=== PATIENT | male | born 1945 | race African-American/Black ===

== ENCOUNTER 2020-07-13 08:07 | Outpatient (REF) | payer MEDICARE, OTHER, SELFPAY ==
[2020-07-13 08:35] LABS: MANUAL DIFF FLAG NO
[2020-07-13 08:48] LABS: Basophils Absolute Auto 0.1 X10*3/uL (0.0-0.2); Basophils Percent Auto 0.7 % (0-2); Eosinophils Absolute Auto 0.3 X10*3/uL (0.0-0.4); Eosinophils Percent Auto 2.8 % (0-4); Hematocrit 46.4 % (42-52); Hemoglobin 14.7 g/dl (14.0-18.0); Imm Gran Abs Auto 0.04 X10*3/uL (0.00-0.03); Imm Gran Pct Auto 0.5 % (0.0-0.4); Lymphocytes Absolute Auto 2.2 X10*3/uL (1.2-4.9); Lymphocytes Percent Auto 24.6 % (20-40); Mean Corpuscular HGB Conc 31.7 g/dl (31.0-36.0); Mean Corpuscular Hemoglobin 28.3 pg (27.0-33.0); Mean Corpuscular Volume 89.4 fL (80-98); Mean Platelet Volume 9.6 fL (9.4-12.4); Monocytes Absolute Auto 0.8 X10*3/uL (0.1-1.2); Neutrophils Absolute Auto 5.5 X10*3/uL (2.0-8.3); Neutrophils Percent Auto 62.4 % (45-73); Platelet Count 270 X10*3/uL (160-400); Red Blood Count 5.19 X10*6/uL (4.60-5.80); Red Cell Distribution Width 13.7 % (11.0-16.0); White Blood Count 8.8 X10*3/uL (4.8-10.8)
[2020-07-13 08:48] LABS: Appearance Urine CLEAR; Color Urine YELLOW; Glucose Urine UA NEG (NEG); Leukocyte Esterase Urine NEG (NEG); Nitrite Urine NEG (NEG); Urine Blood NEG (NEG); Urine Ketones NEG (NEG); Urine Protein NEG (NEG-TRACE)
[2020-07-13 09:05] LABS: Alanine Aminotransferase 31 U/L (0-40); Albumin Level 4.5 g/dL (3.5-5.0); Alkaline Phosphatase 88 U/L (39-117); Anion Gap 12 (12-20); Aspartate Amino Transferase 26 U/L (5-37); Bilirubin Total 0.6 mg/dL (0.0-1.0); Blood Urea Nitrogen 18 mg/dL (9-16); Calcium 9.9 mg/dL (8.4-10.2); Carbon Dioxide 29 mmol/L (22-29); Chloride 107 mmol/L (96-108); Cholesterol 195 mg/dL; Estimated Glomerular Filt Rate 57; Glucose Fasting 99 mg/dL (60-99); HDL Cholesterol 59 mg/dL; LDL Cholesterol Calculated 116 mg/dl; Potassium 4.7 mmol/l (3.3-5.1); Sodium 143 mmol/L (135-145); Triglycerides 104 mg/dL
[2020-07-13 09:27] LABS: PSA,Total (Free>4and<10) 3.43 ng/mL (0.00-4.00)
== END 2020-07-13 08:08 | disposition home or self-care (01) ==
LOC: HO.LAB 08:07
PROVIDERS: PCP Internal Medicine; Referring Provider Internal Medicine; Visit Provider Urology
DX: I10 Essential (primary) hypertension (principal); E78.00 Pure hypercholesterolemia, unspecified; R97.20 Elevated prostate specific antigen [PSA]; Z12.5 Encounter for screening for malignant neoplasm of prostate
CPT/HCPCS: 36415; 80053; 80061; 81003; 84153; 85025

== ENCOUNTER 2020-12-07 07:35 | Outpatient (REF) | payer MEDICARE, OTHER, SELFPAY ==
[2020-12-07 08:24] LABS: MANUAL DIFF FLAG NO
[2020-12-07 08:36] LABS: Basophils Percent Auto 0.5 % (0-2); Eosinophils Absolute Auto 0.2 X10*3/uL (0.0-0.4); Eosinophils Percent Auto 2.3 % (0-4); Hematocrit 44.7 % (42-52); Hemoglobin 14.3 g/dl (14.0-18.0); Imm Gran Abs Auto 0.03 X10*3/uL (0.00-0.03); Imm Gran Pct Auto 0.3 % (0.0-0.4); Lymphocytes Absolute Auto 1.9 X10*3/uL (1.2-4.9); Lymphocytes Percent Auto 22.1 % (20-40); Mean Corpuscular Hemoglobin 28.4 pg (27.0-33.0); Mean Corpuscular Volume 88.7 fL (80-98); Mean Platelet Volume 9.4 fL (9.4-12.4); Monocytes Absolute Auto 0.7 X10*3/uL (0.1-1.2); Monocytes Percent Auto 7.7 % (2-11); Neutrophils Absolute Auto 5.8 X10*3/uL (2.0-8.3); Neutrophils Percent Auto 67.1 % (45-73); Platelet Count 286 X10*3/uL (160-400); Red Blood Count 5.04 X10*6/uL (4.60-5.80); Red Cell Distribution Width 14.2 % (11.0-16.0); White Blood Count 8.6 X10*3/uL (4.8-10.8)
[2020-12-07 08:59] LABS: Alanine Aminotransferase 31 U/L (0-40); Albumin Level 4.5 g/dL (3.5-5.0); Alkaline Phosphatase 87 U/L (39-117); Anion Gap 11 (12-20); Aspartate Amino Transferase 25 U/L (5-37); Bilirubin Total 0.4 mg/dL (0.0-1.0); Blood Urea Nitrogen 12 mg/dL (9-16); Calcium 10.1 mg/dL (8.4-10.2); Carbon Dioxide 25 mmol/L (22-29); Chloride 109 mmol/L (96-108); Cholesterol 198 mg/dL; Estimated Glomerular Filt Rate > 60; Glucose Fasting 91 mg/dL (60-99); HDL Cholesterol 76 mg/dL; LDL Cholesterol Calculated 100 mg/dl; Potassium 4.1 mmol/L (3.3-5.1); Sodium 141 mmol/L (135-145); Total Protein 7.1 g/dL (6.5-8.0); Triglycerides 110 mg/dL
[2020-12-07 09:07] LABS: PSA,Total (Free>4and<10) 6.91 ng/mL (0.00-4.00)
[2020-12-08 11:22] LABS: Percent Free Prostate Spec Ag 16 % (calc) (>25); Prostate Specific Ag Total 6.2 ng/mL (< OR = 4.0)
== END 2020-12-07 07:36 | disposition home or self-care (01) ==
LOC: HO.LAB 07:35
PROVIDERS: PCP Internal Medicine; Visit Provider Internal Medicine
DX: Z12.5 Encounter for screening for malignant neoplasm of prostate (principal); R97.20 Elevated prostate specific antigen [PSA]; I10 Essential (primary) hypertension; E78.00 Pure hypercholesterolemia, unspecified
CPT/HCPCS: 36415; 80053; 80061; 84153; 84154; 85025

== ENCOUNTER 2021-05-31 08:04 | Outpatient (REF) | payer MEDICARE, OTHER, SELFPAY ==
[2021-05-31 09:03] LABS: Anion Gap 12 (12-20); Blood Urea Nitrogen 10 mg/dL (9-16); Carbon Dioxide 25 mmol/L (22-29); Chloride 107 mmol/L (96-108); Estimated Glomerular Filt Rate 58; Glucose Random 95 mg/dL (60-115); Potassium 4.1 mmol/L (3.3-5.1); Sodium 140 mmol/L (135-145)
[2021-05-31 09:32] LABS: PSA,Total (Free>4and<10) 4.43 ng/mL (0.00-4.00)
[2021-06-01 11:26] LABS: Free Prostate Spec Ag 0.9 ng/mL; Percent Free Prostate Spec Ag 22 % (calc) (>25); Prostate Specific Ag Total 4.1 ng/mL (< OR = 4.0)
== END 2021-05-31 08:05 | disposition home or self-care (01) ==
LOC: HO.LAB 08:04
PROVIDERS: PCP Internal Medicine; Visit Provider Internal Medicine
DX: Z12.5 Encounter for screening for malignant neoplasm of prostate (principal); R97.20 Elevated prostate specific antigen [PSA]; I10 Essential (primary) hypertension
CPT/HCPCS: 36415; 80048; 84153; 84154

== ENCOUNTER 2021-11-15 07:37 | Outpatient (REF) | payer MEDICARE, OTHER, SELFPAY ==
[2021-11-15 07:49] LABS: MANUAL DIFF FLAG NO
[2021-11-15 08:09] LABS: Basophils Absolute Auto 0.1 X10*3/uL (0.0-0.2); Basophils Percent Auto 0.6 % (0-2); Eosinophils Absolute Auto 0.3 X10*3/uL (0.0-0.4); Eosinophils Percent Auto 3.5 % (0-4); Hematocrit 42.9 % (42.0-52.0); Hemoglobin 13.7 g/dl (14.0-18.0); Imm Gran Abs Auto 0.02 X10*3/uL (0.00-0.03); Imm Gran Pct Auto 0.2 % (0.0-0.4); Lymphocytes Absolute Auto 1.9 X10*3/uL (1.2-4.9); Lymphocytes Percent Auto 23.1 % (20-40); Mean Corpuscular HGB Conc 31.9 g/dl (31.0-36.0); Mean Corpuscular Hemoglobin 28.3 pg (27.0-33.0); Mean Corpuscular Volume 88.6 fL (80.0-98.0); Mean Platelet Volume 9.7 fL (9.4-12.4); Monocytes Absolute Auto 0.7 X10*3/uL (0.1-1.2); Monocytes Percent Auto 8.9 % (2-11); Neutrophils Absolute Auto 5.3 x10*3/uL (2.0-8.3); Neutrophils Percent Auto 63.7 % (45-73); Platelet Count 271 X10*3/uL (160-400); Red Blood Count 4.84 X10*6/uL (4.60-5.80); Red Cell Distribution Width 14.3 % (11.0-16.0); White Blood Count 8.2 X10*3/uL (4.8-10.8)
[2021-11-15 08:25] LABS: Alanine Aminotransferase 34 U/L (0-40); Albumin Level 4.4 g/dL (3.5-5.0); Alkaline Phosphatase 79 U/L (39-117); Anion Gap 11 (12-20); Aspartate Amino Transferase 25 U/L (5-37); Bilirubin Total 0.8 mg/dL (0.0-1.0); Blood Urea Nitrogen 14 mg/dL (9-16); Calcium 10.2 mg/dL (8.4-10.2); Carbon Dioxide 25 mmol/L (22-29); Chloride 106 mmol/L (96-108); Cholesterol 167 mg/dL; Estimated Glomerular Filt Rate > 60; Glucose Fasting 95 mg/dL (60-99); HDL Cholesterol 64 mg/dL; LDL Cholesterol Calculated 86 mg/dl; Sodium 138 mmol/L (135-145); Triglycerides 85 mg/dL
[2021-11-15 09:02] LABS: Prostate Specific Antigen 5.82 ng/mL (<0.05-4.0)
== END 2021-11-15 07:38 | disposition home or self-care (01) ==
LOC: HO.LAB 07:37
PROVIDERS: PCP Internal Medicine; Visit Provider Internal Medicine
DX: Z12.5 Encounter for screening for malignant neoplasm of prostate (principal); E78.00 Pure hypercholesterolemia, unspecified; I10 Essential (primary) hypertension; N40.0 Benign prostatic hyperplasia without lower urinary tract symptoms
CPT/HCPCS: 36415; 80053; 80061; 84153; 85025

== ENCOUNTER 2022-03-27 10:41 | Outpatient (REF) | payer MEDICARE, OTHER, SELFPAY ==
[2022-03-27 13:49] LABS: MANUAL DIFF FLAG NO
[2022-03-27 14:17] LABS: Basophils Absolute Auto 0.1 X10*3/uL (0.0-0.2); Basophils Percent Auto 0.7 % (0-2); Eosinophils Absolute Auto 0.2 X10*3/uL (0.0-0.4); Eosinophils Percent Auto 2.1 % (0-4); Hematocrit 45.9 % (42.0-52.0); Hemoglobin 14.7 g/dl (14.0-18.0); Imm Gran Abs Auto 0.04 X10*3/uL (0.00-0.03); Imm Gran Pct Auto 0.5 % (0.0-0.4); Lymphocytes Absolute Auto 1.5 X10*3/uL (1.2-4.9); Lymphocytes Percent Auto 16.9 % (20-40); Mean Corpuscular Hemoglobin 27.9 pg (27.0-33.0); Mean Corpuscular Volume 87.1 fL (80.0-98.0); Mean Platelet Volume 10.1 fL (9.4-12.4); Monocytes Absolute Auto 0.6 X10*3/uL (0.1-1.2); Monocytes Percent Auto 7.4 % (2-11); Neutrophils Absolute Auto 6.3 x10*3/uL (2.0-8.3); Neutrophils Percent Auto 72.4 % (45-73); Platelet Count 276 X10*3/uL (160-400); Red Blood Count 5.27 X10*6/uL (4.60-5.80); Red Cell Distribution Width 14.1 % (11.0-16.0); White Blood Count 8.7 X10*3/uL (4.8-10.8)
[2022-03-27 14:38] LABS: Anion Gap 15 (12-20); Blood Urea Nitrogen 14 mg/dL (9-16); Calcium 10.2 mg/dL (8.4-10.2); Carbon Dioxide 25 mmol/L (22-29); Chloride 104 mmol/L (96-108); Estimated Glomerular Filt Rate 58; Glucose Random 113 mg/dL (60-115); Iron 112 mcg/dL (45-160); Percent Iron Saturation 33 % (15-50); Potassium 3.9 mmol/L (3.3-5.1); Sodium 140 mmol/L (135-145); Total Iron Binding Capacity 342 mcg/dL (228-428); Unsaturated Iron Binding 230 ug/dL
[2022-03-27 15:05] LABS: Prostate Specific Antigen 6.93 ng/mL (<0.05-4.0)
== END 2022-03-27 10:42 | disposition home or self-care (01) ==
LOC: HO.10HDL 10:41
PROVIDERS: Visit Provider Internal Medicine
DX: Z12.5 Encounter for screening for malignant neoplasm of prostate (principal); R97.20 Elevated prostate specific antigen [PSA]; I10 Essential (primary) hypertension
CPT/HCPCS: 36415; 80048; 83540; 84153; 85025

== ENCOUNTER 2022-11-27 07:47 | Outpatient (REF) | payer MEDICARE, OTHER, SELFPAY ==
[2022-11-27 07:57] LABS: MANUAL DIFF FLAG NO
[2022-11-27 09:30] LABS: Basophils Absolute Auto 0.1 X10*3/uL (0.0-0.2); Basophils Percent Auto 0.8 % (0-2); Eosinophils Absolute Auto 0.3 X10*3/uL (0.0-0.4); Hematocrit 47.5 % (42.0-52.0); Imm Gran Abs Auto 0.03 X10*3/uL (0.00-0.03); Imm Gran Pct Auto 0.3 % (0.0-0.4); Lymphocytes Absolute Auto 2.3 X10*3/uL (1.2-4.9); Lymphocytes Percent Auto 24.2 % (20-40); Mean Corpuscular HGB Conc 31.6 g/dl (31.0-36.0); Mean Corpuscular Hemoglobin 28.3 pg (27.0-33.0); Mean Corpuscular Volume 89.6 fL (80.0-98.0); Mean Platelet Volume 9.9 fL (9.4-12.4); Monocytes Absolute Auto 0.8 X10*3/uL (0.1-1.2); Monocytes Percent Auto 8.7 % (2-11); Neutrophils Absolute Auto 5.9 x10*3/uL (2.0-8.3); Platelet Count 284 X10*3/uL (160-400); Red Cell Distribution Width 13.8 % (11.0-16.0); White Blood Count 9.3 X10*3/uL (4.8-10.8)
[2022-11-27 10:30] LABS: Alanine Aminotransferase 25 U/L (0-40); Albumin Level 4.5 g/dL (3.5-5.0); Alkaline Phosphatase 76 U/L (39-117); Anion Gap 11 (12-20); Aspartate Amino Transferase 22 U/L (5-37); Bilirubin Total 0.7 mg/dL (0.0-1.0); Blood Urea Nitrogen 12 mg/dL (9-16); Calcium 10.2 mg/dL (8.4-10.2); Carbon Dioxide 28 mmol/L (22-29); Chloride 106 mmol/L (96-108); Cholesterol 182 mg/dL; Estimated Glomerular Filt Rate 57; Glucose Fasting 84 mg/dL (60-99); HDL Cholesterol 73 mg/dL; LDL Cholesterol Calculated 89 mg/dl; Potassium 4.1 mmol/L (3.3-5.1); Sodium 141 mmol/L (135-145); Total Protein 7.6 g/dL (6.5-8.0); Triglycerides 100 mg/dL
[2022-11-27 10:32] LABS: Prostate Specific Antigen 4.88 ng/mL (<0.05-4.0)
== END 2022-11-27 07:48 | disposition home or self-care (01) ==
LOC: HO.LAB 07:47
PROVIDERS: PCP Internal Medicine; Visit Provider Internal Medicine
DX: I10 Essential (primary) hypertension (principal); R97.20 Elevated prostate specific antigen [PSA]; E78.00 Pure hypercholesterolemia, unspecified; Z12.5 Encounter for screening for malignant neoplasm of prostate
CPT/HCPCS: 36415; 80053; 80061; 84153; 85025

== ENCOUNTER 2023-05-28 09:39 | Outpatient (REF) | payer MEDICARE, OTHER, SELFPAY ==
[2023-05-28 10:36] LABS: Anion Gap 11 (12-20); Blood Urea Nitrogen 10 mg/dL (9-16); Calcium 10.5 mg/dL (8.4-10.2); Carbon Dioxide 28 mmol/L (22-29); Chloride 106 mmol/L (96-108); Estimated Glomerular Filt Rate > 60; Glucose Random 104 mg/dL (60-115); Potassium 3.7 mmol/L (3.3-5.1); Sodium 141 mmol/L (135-145)
== END 2023-05-28 09:40 | disposition home or self-care (01) ==
LOC: HO.10HDL 09:39
PROVIDERS: Visit Provider Internal Medicine
DX: I12.9 Hypertensive chronic kidney disease with stage 1 through stage 4 chronic kidney disease, or unspecified chronic kidney disease (principal); N18.9 Chronic kidney disease, unspecified; K57.90 Diverticulosis of intestine, part unspecified, without perforation or abscess without bleeding
CPT/HCPCS: 36415; 80048

== ENCOUNTER 2023-09-01 14:15 | Outpatient (AMB) | payer MEDICARE, OTHER, SELFPAY ==
--- NOTE | 2023-09-01 14:23 | A.OFFVIS_ITS ---
Intake Vital Signs 09/01/23 14:31 Height 5 ft 8 in Weight 215 lb 2 oz BMI 32.7 BP 127/78 Blood Pressure Location Lt brachial Position Sitting Pulse 120 H Intake Visit Reasons: Hemorrhoids Intake Note: Patient is seen in office for evaluation and treatment of hemorrhoids. 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 He describes drainage from his anus along with some blood frequently. He says that he always has to keep a piece of history paper in his anus because of this. This has been going for a few months now. He says he has had hemorrhoids for about 50 years but this really have not given him problems in the past. He feels that this problem with the drainage seemeds to be worsening. He denies any pain. He also describes sometimes having to push this large hemorrhoid in. He states that he is in good health overall. [facility] Medical History (Updated 09/01/23 @ 14:46 by Jermaine Calderon MD) Hemorrhoids that prolapse with straining and require manual replacement back inside anal canal Hyperlipidemia Hypertension Surgical History (Updated 09/01/23 @ 14:29 by LEXY Sarmiento) History of carpal tunnel release Hx of left inguinal hernia repair Hx of left knee surgery Hx of excision of mass Family History (Updated 09/01/23 @ 14:30 by LEXY Sarmiento) Sister Pancreatic cancer Social History (Updated 09/01/23 @ 14:27 by LEXY Sarmiento) Alcohol intake: current Patient Tobacco Use Status: Never used Tobacco Review of Systems Const Denies chills and Denies fever(s) Card Denies chest pain, Denies dyspnea and Denies dyspnea on exertion Resp Denies cough, Denies dyspnea and Denies dyspnea on exertion GI Denies hematochezia and Denies change in bowel habits Denies hematuria and Denies difficulty urinating Musc Denies back pain and Denies limited range of motion Neuro Denies focal weakness and Denies convulsions Psych Denies depression and Denies mood swings Physical Exam Vital Signs: Last Vital Signs Pulse 120 H 09/01/23 14:31 BP 127/78 09/01/23 14:31 BMI result Body Mass Index 32.7 Const General: comfortable and no acute distress Orientation/consciousness: patient oriented x3 Neck Neck: Yes no lymphadenopathy Resp Auscultation: clear to auscultation bilaterally Cardio Rhythm: regular rhythm GI Other: Rectal exam shows a large, bulky prolapsing hemorrhoid column, internal external which seems to be on the anterior area Palpation (GI): Soft to palpation, nontender and no guarding Neuro General: patient oriented x3 Office Procedures Anoscopy He was in flakita-knife position. The anoscope was gently inserted. A full examination of the anal canal was done. He had this large internal external column anteriorly that seemed to prolapse easily, with some erythema [id number] Assessment & Plan Assessment & Plan (1) Hemorrhoids that prolapse with straining and require manual replacement back inside anal canal: Code(s): K64.2 - Third degree hemorrhoids Plan: He has this large hemorrhoidal column anteriorly which he says causes some drainage and discomfort. This seems to be worsening. He says that once in a while he has to push this back into the anus I explained to him the option of hemorrhoidectomy. I discussed the technique of exam under anesthesia and hemorrhoidectomy. I reviewed the risks including but not limited to bleeding, infections, poor healing, postop pain, as well as the benefits and alternatives. I reviewed with him what to expect postoperatively. He wants to proceed. Coding Level of Care Code New Pt Level 3 (67713) Diagnoses Hemorrhoids that prolapse with straining and require manual replacement back inside anal canal K64.2 CPT Codes Details - CPT: [id number] ([id number])
[2023-09-01 14:31] VITALS: BP 127/78; PULSE 120; BMI 32.7
== END 2023-09-01 14:50 | disposition home or self-care (01) ==
PROVIDERS: PCP Internal Medicine; Referring Provider Internal Medicine; Visit Provider Surgery
DX: K64.2 Third degree hemorrhoids (principal)
CPT/HCPCS: 46600; 99203

== ENCOUNTER → 2023-09-01 14:15 | Outpatient (BNVA) | payer MEDICARE, OTHER, SELFPAY | PROVIDERS: PCP Internal Medicine; Referring Provider Internal Medicine; Visit Provider Surgery | DX: K64.2 Third degree hemorrhoids (principal); I10 Essential (primary) hypertension; E78.5 Hyperlipidemia, unspecified | CPT/HCPCS: 46600; 99202 ==

== ENCOUNTER 2023-10-10 08:36 | Day surgery (SDC) | payer MEDICARE, OTHER, SELFPAY ==
[2023-10-09 06:43] VITALS: BMI 32.7
[2023-10-10 10:02] VITALS: BMI 31.9
--- NOTE | 2023-10-10 10:44 | P.CONAN_ITS ---
[facility] Active Problems Active Problems: All Active Problems Hemorrhoids that prolapse with straining and require manual replacement back inside anal canal (Acute) Hyperlipidemia (Acute) Hypertension (Acute) Past Medical History Medical History Hemorrhoids that prolapse with straining and require manual replacement back inside anal canal Hyperlipidemia Hypertension Family History Family History (Updated 09/01/23 @ 14:30 by LEXY Sarmiento) Sister Pancreatic cancer Family history of problems with anesthesia: No Surgical History Surgical History History of carpal tunnel release Hx of left inguinal hernia repair Hx of left knee surgery Hx of excision of mass History of Problems with Anesthesia: No Social History Social History (Updated 09/01/23 @ 14:27 by LEXY Sarmiento) Alcohol intake: current Alcohol intake frequency: holidays/special occasions only Patient Tobacco Use Status: Never used Tobacco Use of substances other than those prescribed or required for medical reasons: Yes Substance Use Frequency: Occasionally Are you DNR?: No Advance Directives: No Advance Directives Information Provided: Yes Meds Allergies Allergy/AdvReac Type Severity Reaction Status Date / Time lisinopril [LISINOPRIL] Allergy Unknown ORAL Verified 10/10/23 10:06 SWELLING lisinopril Allergy Unknown oral Uncoded 10/10/23 10:06 swelling Active Medications: Current Medications Fentanyl (Fentanyl Citrate/Pf 100 Mcg/2 Ml Vial) 50 mcg IVPUSH Q5M PRN; Protocol PRN Reason: Pain, Severe (Pain Scale 7-10) Stop: 10/10/23 16:42 Ondansetron HCl (Ondansetron Hcl 4 Mg/2 Ml Vial) 4 mg IVPUSH ONCE PRN PRN Reason: Nausea and Vomiting Stop: 10/10/23 16:42 Oxycodone HCl (Oxycodone Hcl Immed Release 5 Mg Tablet) 5 mg PO ONCE PRN PRN Reason: Pain, Moderate(Pain Scale 4-6) Stop: 10/10/23 16:42 Home Medications ?Medication ?Instructions ?Recorded ?Confirmed ?Last Taken ?Type amlodipine 10 mg tablet 10 mg PO DAILY 09/01/23 10/10/23 10/10/23 History doxazosin 2 mg tablet 2 mg PO DAILY 09/01/23 10/10/23 10/10/23 History simvastatin 20 mg tablet 20 mg PO BEDTIME 09/01/23 10/10/23 10/09/23 History Exam Height,Weight and Vital Signs: Height 5 ft 8 in Weight 95.254 kg Airway Mallampati Class: II (caps top front, lateral) TM Dist: >3cm Neck ROM: Full Heart: rrr Lungs: cta Assessment and Plan Assessment Anesthesia Assessment: Anesthesia Plan Discussed and Chart Reviewed Final Anesthetic Review Family History of Problems with Anesthesia: No History of Problems with Anesthesia: No NPO: Yes ASA Class: II Final Preanesthetic Review: No Changes in Pt Med Stat, Meds/Allgs Chart Reviewed and Consent Obtained/Reviewed Patient Risk: Intermediate Procedure Risk: Intermediate Anesthetic Plan Anesthetic Plan: GA Disposition: Standard PACU
[2023-10-10 10:50] VITALS: BP 160/92; PULSE 102; RESP 16; TEMP 36.3; O2SAT 98
--- NOTE | 2023-10-10 10:55 | MHC.SHP ---
Pre-Procedural Eval Section A - 24 Hr Update-Section A only Date of Service: 10/10/23 Section B - Complete if H&P > 30 days Chief Complaint: Third degree hemorrhoids Details of Present Illness: Has mixed internal and external hemorrhoidal column the prolapse with causes discomfort and drainage Relevant Family History (Specify if Yes): No Relevant Social History: None Present Medications: see Short Stay Collaborative assessment Medical History: Significant History (Hypertension, hyperlipidemia) Allergies: Allergies Allergy/AdvReac Type Severity Reaction Status Date / Time lisinopril [LISINOPRIL] Allergy Unknown ORAL Verified 10/10/23 10:06 SWELLING lisinopril Allergy Unknown oral Uncoded 10/10/23 10:06 swelling Review of Systems Sugical H&P ROS: Negative: Constitution, Cardiovascular, Respiratory, Neurological, Psychiatric, Hem-Onc, Allergic/Immunologic, Gastrointestinal, Genitourinary, Musculoskeletal, Integumentary, Endocrine and Eyes/Ears/Nose/Throat Exam Surgical H&P Exam: Normal: HEENT, Normal: Heart, Normal: Lungs, Normal: Extremities, Normal: Abdomen, Normal: Skin and Normal: Neurological Exam Comment: Internal external hemorrhoids Plan Diagnosis/Plan: Unchanged I have reviewed the history and physical and performed a pertinent physical examination on my patient. No changes have occurred unless specified. Time Spent With Patient Time: Total time managing care of this patient today ____ minutes.
--- NOTE | 2023-10-10 12:03 | W.PM.OPN ---
Operative Note Operative Note Date of Service: 10/10/23 Narrative: Preop diagnosis: Internal and external hemorrhoids with prolapse Postop diagnosis: The same Procedure: Exam under anesthesia, hemorrhoidectomy Surgeon: Jermaine Calderon MD The patient is a 78-year-old male with a long history of hemorrhoids that prolapse frequently requiring manual reduction. He wanted to proceed with hemorrhoidectomy in view of his longstanding symptoms. He was aware of the risks, benefits, and alternatives. He was brought to the operating room. He was placed in prone flakita-knife position under general anesthesia via endotracheal tube. The buttocks were retracted with wide tape laterally. The perianal area was prepped and draped in the usual sterile fashion. A surgical time-out was done. The patient received Cefotan 2 g IV preoperatively he I infiltrated the perianal area with Marcaine 0.5% for postop analgesia. There is was note of a prolapse hemorrhoidal column on the right anterior. I inserted the Mary Jane Steward retractor. I examined the anal canal circumferentially. This hemorrhoidal column was seen and was noted to be bulky and a mix of internal external. This measured about 4 cm in size. I retracted this with a Muñoz grasper. I applied a [id number] stitch at its pedicle past the dentate line using a chromic 3-0. I made an incision around this hemorrhoidal columns the perianal skin with a blade 15. I excised this hemorrhoidal column above the plane of the sphincters using scissors. I closed the incision with a running chromic 3-0 stitch. Additional hemostatic [id number] sutures were placed for oozing areas There were no other lesions in the anal canal. There was no bleeding or any ulceration. There was no induration . I applied a rolled Gelfoam into the anal canal for additional hemostasis. I infiltrated the perianal area with Marcaine 0.5% for postop analgesia. The procedure was completed. The patient tolerated procedure well. There were no immediate complications. Initial and final counts of sponges and instruments were correct. Estimated blood loss about 25 cc. The patient was extubated without difficulty and transferred to the recovery room with stable vital signs.
[2023-10-10 12:08] VITALS: BP 134/80; PULSE 99; RESP 16; TEMP 36.3; O2SAT 95
[2023-10-10 12:13] VITALS: BP 129/81; PULSE 103; RESP 16; O2SAT 94
[2023-10-10 12:18] VITALS: BP 147/91; PULSE 99; RESP 16; O2SAT 93
[2023-10-10 12:23] VITALS: BP 125/81; PULSE 93; RESP 18; TEMP 36.6; O2SAT 96
[2023-10-10 12:38] VITALS: BP 128/72; PULSE 99; RESP 18; O2SAT 96
== END 2023-10-10 13:00 | disposition home or self-care (01) ==
PROVIDERS: PCP Internal Medicine; Visit Provider Surgery
PROC: (CPT 46255; principal; 2023-10-10 11:10)
DX: K64.2 Third degree hemorrhoids (principal); K64.4 Residual hemorrhoidal skin tags; I10 Essential (primary) hypertension; E78.5 Hyperlipidemia, unspecified; Z79.899 Other long term (current) drug therapy; Z88.8 Allergy status to other drugs, medicaments and biological substances; Z98.890 Other specified postprocedural states
CPT/HCPCS: 46255; 88304; J1100; J2405; J2704; J2795; J3010

== ENCOUNTER → 2023-10-10 08:36 | Outpatient (BNV) | payer MEDICARE, OTHER, SELFPAY | PROVIDERS: PCP Internal Medicine; Visit Provider Surgery | DX: K64.2 Third degree hemorrhoids (principal) | CPT/HCPCS: 46255 ==

== ENCOUNTER 2023-10-27 10:38 | Outpatient (AMB) | payer MEDICARE, OTHER, SELFPAY ==
--- NOTE | 2023-10-27 10:41 | A.OFFVIS_ITS ---
Intake Visit Reasons: s/p hemorrhoidectomy Intake Note: This patient presents for a post-op assessment status post hemorrhoidectomy. Patient c/o; reports no complaints pertaining to surgery. Surgery date: 10/10/2023 Thermo Processor Required: No Accompanied by: Self / Same As Patient Allergies lisinopril [LISINOPRIL] Allergy (Unknown, Verified 10/27/23 10:46) ORAL SWELLING lisinopril Allergy (Unknown, Uncoded 10/27/23 10:46) oral swelling HPI HPI s/p hemorrhoidectomy: Details: He underwent hemorrhoidectomy last 10/10/2023. He tolerated procedure well. He says he is doing well at home and has no significant pain anymore. [facility] Medical History Hemorrhoids that prolapse with straining and require manual replacement back inside anal canal Hyperlipidemia Hypertension Surgical History History of hemorrhoidectomy (~10/10/23) History of carpal tunnel release Hx of left inguinal hernia repair Hx of left knee surgery Hx of excision of mass Family History Sister Pancreatic cancer Social History Alcohol intake: current Alcohol intake frequency: holidays/special occasions o nly Patient Tobacco Use Status: Never used Tobacco Review of Systems Const Denies chills and Denies fever(s) Card Denies chest pain at rest GI Denies hematochezia Physical Exam Const General: comfortable and no acute distress Resp Effort & Inspection: normal respiratory effort GI Other: Rectal exam shows the hemorrhoidectomy site to be well healed, not infected Assessment & Plan Assessment & Plan (1) Hemorrhoids that prolapse with straining and require manual replacement back inside anal canal: Code(s): K64.2 - Third degree hemorrhoids Category: Medical Plan: Status post hemorrhoidectomy. He is doing very well. His surgical site is well healed. He says he feels well overall and is happy with the outcome I advised him on avoiding straining and constipation. He can follow up on a p.r.n. basis. Coding Level of Care Code Global (36169) Diagnoses Hemorrhoids that prolapse with straining and require manual replacement back inside anal canal K64.2
== END 2023-10-27 11:15 | disposition home or self-care (01) ==
PROVIDERS: PCP Internal Medicine; Visit Provider Surgery
DX: K64.2 Third degree hemorrhoids (principal)
CPT/HCPCS: 99024

== ENCOUNTER → 2023-10-27 10:38 | Outpatient (BNVA) | payer MEDICARE, OTHER, SELFPAY | PROVIDERS: PCP Internal Medicine; Visit Provider Surgery | DX: K64.2 Third degree hemorrhoids (principal); Z48.815 Encounter for surgical aftercare following surgery on the digestive system | CPT/HCPCS: 99212 ==

== ENCOUNTER 2024-03-31 08:31 | Outpatient (REF) | payer MEDICARE, OTHER, SELFPAY ==
[2024-03-31 08:58] LABS: MANUAL DIFF FLAG NO
[2024-03-31 09:18] LABS: Basophils Absolute Auto 0.1 X10*3/uL (0.0-0.2); Basophils Percent Auto 0.6 % (0-2); Eosinophils Absolute Auto 0.3 X10*3/uL (0.0-0.4); Eosinophils Percent Auto 2.3 % (0-4); Hemoglobin 14.9 g/dl (14.0-18.0); Imm Gran Abs Auto 0.04 X10*3/uL (0.00-0.03); Imm Gran Pct Auto 0.3 % (0.0-0.4); Lymphocytes Absolute Auto 1.7 X10*3/uL (1.2-4.9); Lymphocytes Percent Auto 13.4 % (20-40); Mean Corpuscular HGB Conc 31.7 g/dl (31.0-36.0); Mean Corpuscular Hemoglobin 28.6 pg (27.0-33.0); Mean Corpuscular Volume 90.2 fL (80.0-98.0); Mean Platelet Volume 9.2 fL (9.4-12.4); Monocytes Absolute Auto 0.9 X10*3/uL (0.1-1.2); Monocytes Percent Auto 7.2 % (2-11); Neutrophils Absolute Auto 9.5 x10*3/uL (2.0-8.3); Neutrophils Percent Auto 76.2 % (45-73); Platelet Count 283 X10*3/uL (160-400); Red Blood Count 5.21 X10*6/uL (4.60-5.80); Red Cell Distribution Width 13.2 % (11.0-16.0); White Blood Count 12.4 X10*3/uL (4.8-10.8)
[2024-03-31 09:28] LABS: Appearance Urine Clear; Color Urine Yellow; Glucose Urine UA Negative (Negative); Leukocyte Esterase Urine Trace (Negative); Nitrite Urine Negative (Negative); PH 5.5 (5.0-9.0); UMIC TRIGGER UA YES; Urine Blood Negative (Negative); Urine Ketones Trace mg/dL (Negative); Urine Protein Trace mg/dL (Neg-Trace)
[2024-03-31 09:32] LABS: Bacteria Urine None Seen (None Seen); Hyaline Casts Urine 0-2 /LPF (0-2); RBC Urine 0-2 /HPF (0-2); Squamous Epithelial Cell Urine 0-2 /HPF (0-2); WBC Urine 0-5 /HPF (0-5)
[2024-03-31 09:56] LABS: Alanine Aminotransferase 27 U/L (0-40); Albumin Level 4.7 g/dL (3.5-5.0); Alkaline Phosphatase 93 U/L (39-117); Anion Gap 11 (12-20); Aspartate Amino Transferase 22 U/L (5-37); Bilirubin Total 0.6 mg/dL (0.0-1.0); Blood Urea Nitrogen 12 mg/dL (9-16); Calcium 10.8 mg/dL (8.4-10.2); Carbon Dioxide 29 mmol/L (22-29); Chloride 107 mmol/L (96-108); Cholesterol 191 mg/dL (<200); Estimated Glomerular Filt Rate 56; Glucose Fasting 106 mg/dL (60-99); HDL Cholesterol 65 mg/dL (>40); LDL Cholesterol Calculated 95 mg/dL (<100); Potassium 4.1 mmol/L (3.3-5.1); Sodium 143 mmol/L (135-145); Total Protein 7.7 g/dL (6.5-8.0); Triglycerides 158 mg/dL (<150)
[2024-03-31 10:11] LABS: Prostate Specific Antigen 6.23 ng/mL (<0.05-4.0)
== END 2024-03-31 08:32 | disposition home or self-care (01) ==
LOC: HO.LAB 08:31
PROVIDERS: PCP Internal Medicine; Visit Provider Internal Medicine
DX: I10 Essential (primary) hypertension (principal); N40.1 Benign prostatic hyperplasia with lower urinary tract symptoms; Z12.5 Encounter for screening for malignant neoplasm of prostate
CPT/HCPCS: 36415; 80053; 80061; 81001; 84153; 85025

== ENCOUNTER 2024-04-13 09:15 | Outpatient (REF) | payer MEDICARE, OTHER, SELFPAY ==
[2024-04-13 11:50] LABS: Anion Gap 13 (12-20); Blood Urea Nitrogen 9 mg/dL (9-16); Calcium 9.8 mg/dL (8.4-10.2); Carbon Dioxide 28 mmol/L (22-29); Chloride 104 mmol/L (96-108); Estimated Glomerular Filt Rate > 60; Glucose Random 104 mg/dL (60-115); Potassium 3.8 mmol/L (3.3-5.1); Sodium 141 mmol/L (135-145)
[2024-04-13 12:40] LABS: Parathyroid Hormone Intact 190.5 pg/mL (8.7-77.1)
== END 2024-04-13 09:16 | disposition home or self-care (01) ==
LOC: HO.10HDL 09:15
PROVIDERS: Visit Provider Internal Medicine
DX: E83.52 Hypercalcemia (principal)
CPT/HCPCS: 36415; 80048; 83970

== ENCOUNTER 2024-12-03 13:05 | Outpatient (AMB) | payer MEDICARE, OTHER, SELFPAY ==
--- NOTE | 2024-11-26 12:57 | AM.OFFVISMDC ---
Intake Intake Visit Reasons: This is a Medicare AWV subsequent Allergies lisinopril [LISINOPRIL] Allergy (Unknown, Verified 10/27/23 10:46) ORAL SWELLING lisinopril Allergy (Unknown, Uncoded 10/27/23 10:46) oral swelling PFSH Medical History Hemorrhoids that prolapse with straining and require manual replacement back inside anal canal Hyperlipidemia Hypertension Surgical History History of hemorrhoidectomy (~10/10/23) History of carpal tunnel release Hx of left inguinal hernia repair Hx of left knee surgery Hx of excision of mass Family History Sister Pancreatic cancer Social History Alcohol intake: current Alcohol intake frequency: holidays/special occasions only Patient Tobacco Use Status: Never used Tobacco Questionnaire Medicare Wellness Checkup What gender do you identify with?: male Coding
--- NOTE | 2024-12-03 12:00 | A.OFFVIS_ITS ---
Intake Vital Signs 12/03/24 13:07 Height 5 ft 7 in Weight 217 lb BMI 34.0 BP 120/76 Blood Pressure Location Lt brachial Position Sitting Pulse 114 H Pulse Source Pulse Oximeter Temp 97.7 F Temp Source Axillary Pulse Oximetry (%) 96 Oxygen Delivery Method Room Air Intake Visit Reasons: This is a Medicare AWV subsequent Live Truck Operator Required: No Accompanied by: Self / Same As Patient Allergies lisinopril (LISINOPRIL) Allergy (Unknown, Verified 12/03/24 13:10) ORAL SWELLING lisinopril Allergy (Unknown, Uncoded 10/27/23 10:46) oral swelling HPI HPI Comments History of Present Illness Details 79 year old male with a past medical his tory of hypertension, hyperlipidemia, BPH, elevated pth, BPH presenting for MWV. Last seen by pcp in July CV: on norvasc, simvastatin. Blood pressure controlled. Denies chest pain, palpitations BPH on doxasozin. Colonoscopy 2014-dr claudia BRIGGS reviewed Care team reviewed. independent adls No depression ROS CONSTITUTIONAL: Denies weight loss, fever and chills. HEENT: Denies changes in vision and hearing. RESPIRATORY: Denies SOB and cough. CV: Denies palpitations and CP GI: Denies abdominal pain, nausea, vomiting and diarrhea. : Denies dysuria and urinary frequency. MSK: Denies new myalgia and joint pain. SKIN: Denies rash and pruritus. NEUROLOGICAL: Denies headache PSYCHIATRIC: Denies recent changes in mood. PHYSICAL EXAM: GENERAL: Alert and oriented x 3. NAD EYES: EOMI. Anicteric. HENT: Moist mucous membranes. No scleral icterus. No cervical lymphadenopathy. LUNGS: Clear to auscultation bilaterally. CARDIOVASCULAR: Regular rate and rhythm. No murmur. No JVD. ABDOMEN: Soft, non-tender +bs EXTREMITIES: No edema. Non-tender. SKIN: No rashes or lesions. Warm. NEUROLOGIC: No focal neurological deficits. CN II-XII grossly intact PSYCHIATRIC: Cooperative. Appropriate mood and affect [facility] Medical History Hemorrhoids that prolapse with straining and require manual replacement back inside anal canal Hyperlipidemia Hypertension Surgical History History of colonoscopy (~03/09/15) History of hemorrhoidectomy (~10/10/23) History of carpal tunnel release Hx of left inguinal hernia repair Hx of left knee surgery Hx of excision of mass Family History Sister Pancreatic cancer Mother No problems noted. Father No problems noted. Social History Alcohol intake: current Alcohol intake frequency: holidays/special occasions only Patient Tobacco Use Status: Never used Tobacco Questionnaire Medicare Wellness Checkup What [age] What gender do you identify with?: male During the past 4 weeks, how much have you been bothered by emotional problems such as feeling anxious, depressed, irritable, sad or downhearted, and blue?: not at all During the past 4 weeks, has your physical & emotional health limited your social activities with family, friends, neighbors, or groups?: not at all During the past 4 weeks, how much bodily pain have you generally had?: no pain During the past 4 weeks, was someone available to help you if you needed & wanted help?: yes, as much as I wanted During the past 4 weeks, what was the hardest physical activity you could do for at least 2 minutes?: moderate Can you get to places out of walking distance without help? (For eg., can you travel alone on buses, taxis or drive your car?): Yes Can you go shopping for groceries or clothes without someone's help?: Yes Can you prepare your own meals?: Yes Can you do your housework without help?: Yes Because of any health problems, do you need the help of another person with your personal care needs such as eating, bathing, dressing or getting around the house?: No Can you handle your own money without help?: Yes During the past 4 weeks, how would you rate your health in general?: very good During the past 4 weeks how have things been going for you?: very well; could hardly better Are you having difficulties driving your car?: no Do you always fasten your seat belt when you are in a car?: yes, usually During past 4 weeks, have you been bothered by the following: never: Falling or dizzy when standing up, Sexual problems?, Trouble eating well?, Teeth or denture problems?, Problems using the telephone? and Tiredness or fatigue? Have you fallen 2 or more times in the past year?: No Are you afraid of falling?: Yes During the past 4 weeks, how many drinks of wine, beer, or other alcoholic beve rages did you have?: 2-5 drinks per week Do you exercise for about 20 minutes 3 or more times a week?: yes, some of the time Have you been given information to help with the following?: no: Hazards in your house that might hurt you? and no: Keeping track of your medications? How often do you have trouble taking medicines the way you have been told to take them?: I always take medicine as prescribed How confident are you that you can control & manage most of your health problems?: very confident What is your race?: Black or Mini Mental State Exam (MMSE) Orientation What is the (year) (season) (date) (day) (month)?: year, season, date, day and month Where are we (state) (county) (town or city) (hospital) (floor)?: state, county, town or city, hospital/clinic and floor Registration Name of 3 unrelated objects clearly and slowly, then ask patient to repeat all 3 of them. (1st repeat determines score. Make sure they can repeat all three): object 1, object 2 and object 3 Attention & Calculation (CHOOSE ONE) Ask pt to begin with 100 & count backward by 7. Stop after 5 repeats. If pt cannot ask them to spell the word WORLD backward.: 65 Spell WORLD backwards (DLROW): 5 letters Recall Ask patient to repeat the 3 items from question #3.: object 3 Language Show patient a wristwatch & ask what it is. Repeat for pencil.: pencil Ask the patient to repeat the phrase 'No ifs, ands, or buts' after you.: correct Ask the patient to 'take a piece of paper with their right hand' 'fold paper in half' 'place paper on floor': place paper on floor Print the sentence 'CLOSE YOUR EYES' on a piece. If patient actually closes eyes then score.: followed written direction Give patient a blank piece of paper & ask to write a sentence. Score if it contains a noun & verb.: sentence contains subject and verb Ask patient to copy figure of intersecting pentagons exactly. Score if all 10 angles & 2 intersects are included.: all 10 angles present & 2 are intersected Score Score: 26 Activity of Daily Living Bathing - sponge bath, tub bath or shower: receives no assistance (gets in/out by self, if usual bathing means Dressing - getting clothes from closets & drawers, including inner/outer garments & fasteners.: gets clothes & gets completely dressed without help Toileting - going to the 'toilet room' for urine/bowel elimination & cleaning self/arranging clothes: goes to toilet room, cleans self, arranges clothes without help Transfer: moves in & out of bed and chair without help (may use support object) Continence: controls urination/bowel movements completely by self Feeding: feeds self without help Total Score: 0 Information obtained from: patient Using telephone: independent Traveling: independent Shopping: independent Preparing meals: independent Housework: independent Taking medicine: independent Managing money: independent PHQ-9 Over the last 2 weeks, how often have you been bothered by any of the following problems? 1. Little interest or pleasure in doing things: not at all 2. Feeling down, depressed, or hopeless: not at all 3. Trouble falling or staying asleep, or sleeping too much: not at all 4. Feeling tired or having little energy: not at all 5. Poor appetite or overeating: not at all 6. Feeling bad about yourself - or that you are a failure or have let yourself or your family down: not at all 7. Trouble concentrating on things, such as reading the newspaper or watching television: not at all 8. Moving or speaking so slowly that other people could have noticed. Or the opposite - being so fidgety or restless that you have been moving around a lot more than usual: not at all 9. Thoughts that you would be better off or of hurting yourself in some way: not at all Total score: 0 Source: Developed by Drs. Kendrick Cobb, Bhavna Ibanez, Simon Marie and colleagues, with an educational leigh from [employer]. Physical Exam Vital Signs: Last Vital Signs Temp 97.7 F 12/03/24 13:07 Pulse 114 H 12/03/24 13:07 BP 120/76 12/03/24 13:07 Pulse Ox 96 12/03/24 13:07 Oxygen Delivery Method Room Air 12/03/24 13:07 BMI result Body Mass Index 34.0 Assessment & Plan Assessment & Plan (1) Medicare annual wellness visit, subsequent: Code(s): Z00.00 - Encounter for general adult medical examination without abnormal findings (2) Hypertension: Code(s): I10 - Essential (primary) hypertension Qualifiers: Hypertension type: primary hypertension Qualified Code(s): I10 - Essential (primary) hypertension (3) Hyperlipidemia: Code(s): E78.5 - Hyperlipidemia, unspecified Qualifiers: Hyperlipidemia type: other hyperlipidemia Qualified Code(s): E78.49 - Other hyperlipidemia Plan 79 y/o male for MWV see details in note past medical, social, family reviewed BP is well controlled Recheck psa was high-tells me its been high and he has had prior biopsy Orders: Orders Complete Blood Count Auto Diff Today E78.5 - Hyperlipidemia, unspecified, I10 - Essential (primary) hypertension, R73.09 - Other abnormal glucose, R97.20 - Elevated prostate specific antigen [PSA] Lipid Panel Today E78.5 - Hyperlipidemia, unspecified, I10 - Essential (primary) hypertension, R73.09 - Other abnormal glucose, R97.20 - Elevated prostate specific antigen [PSA] Hemoglobin A1c Today E78.5 - Hyperlipidemia, unspecified, I10 - Essential (primary) hypertension, R73.09 - Other abnormal glucose, R97.20 - Elevated prostate specific antigen [PSA] Prostate Specific Antigen Today E78.5 - Hyperlipidemia, unspecified, I10 - Essential (primary) hypertension, R73.09 - Other abnormal glucose, R97.20 - Elevated prostate specific antigen [PSA] Comprehensive Met. Panel Today E78.5 - Hyperlipidemia, unspecified, I10 - Essential (primary) hypertension, R73.09 - Other abnormal glucose, R97.20 - Elevated prostate specific antigen [PSA] Referrals Gastroenterology Referral Z12.11 - Encounter for screening for malignant neoplasm of colon Medications: New sildenafil (Viagra) administer 30 minutes to 4 hours before activity 100 mg PO DAILY PRN 30 tabs 3RF sexual activity clobetasol 0.05% 1 appl topical BID 118 mL 0RF 4 weeks Quality Reporting (2019) Depression/Bipolar (159/160/161/177) PHQ-9: Total score: 0 Coding Level of Care Code Medicare Subsequent (G0439) Diagnoses Medicare annual wellness visit, subsequent Z00.00 Primary hypertension I10 Hypertension type: primary hypertension Other hyperlipidemia E78.49 Hyperlipidemia type: other hyperlipidemia Advance Care Planning Advance Care Planning discussion: Declined forms
[2024-12-03 13:07] VITALS: BP 120/76; PULSE 114; TEMP 36.5; O2SAT 96; BMI 34.0
== END 2024-12-03 13:35 | disposition home or self-care (01) ==
LOC: HO.HMCHD 13:06
PROVIDERS: PCP Internal Medicine; Visit Provider Internal Medicine
DX: Z00.00 Encounter for general adult medical examination without abnormal findings (principal); I10 Essential (primary) hypertension; E78.49 Other hyperlipidemia

== ENCOUNTER → 2024-12-03 13:05 | Outpatient (BNVA) | payer MEDICARE, OTHER, SELFPAY | PROVIDERS: PCP Internal Medicine; Visit Provider Internal Medicine ==

== ENCOUNTER 2024-12-14 08:05 | Outpatient (REF) | payer MEDICARE, OTHER, SELFPAY ==
--- OUTSIDE RECORDS SUMMARY | 2024-12-14 08:11 | XMS_ITS | Patient Health Record ---
Author Organization [facility] Address [address] [place] [address] Care Team Providers Care Health And Safety Inspector Name Role Phone Belinda Ordonez M.D. Primary Care Provider Unavail able Martina Ingram Unavailable [phone] Allergies Allergen (clinical drug ingredient) Drug/Non Drug Allergy documented on EMR Reaction Allergy Type Onset Date Status Lisinopril Unknown Drug Allergy Active Reason For Referral No Information Medications Medication SIG (Take, Route, Frequency, Duration) Notes Start Date End Date Status Aspirin 81 MG 1 tablet Orally Once a day Active Simvastatin 20 MG 1 tablet in the even ing Orally Once a day Active amLODIPine Besylate 10 MG 1 tablet Orally Once a day Active Problems Problem Type SNOMED Code ICD Code Onset Dates Problem Status W/U Status Risk Notes Problem Already on aspirin (319520174) Long-term (current) use of aspirin (V58.66) Active confirmed Problem Colon cancer screening (V76.51) Active confirmed Plan Of Treatment Pending Test Test Name Order Date GI BIOPSY 03/09/2015 Future Test Test Name Order Date COLONOSCOPY 12/14/2014 Next Appt Details Provider Name:Martina Ingram , 03/22/2025 02:00:00 PM, [address], [address], [place], [address], Insurance Providers Payer Name Payer Address Payer Phone Subscriber Number Group Number Insured Name Patient Relationship to Insured Coverage Start Date Coverage End Date MEDICARE OF [place] [address] [place] [address] [phone] [id number] MARTINA HAM Self - patient is the insured [address] [place], [place] [phone] [id number] MARTINA HAM Self - patient is the insured Medical (General) History Medical History History ICD Code Screening colonoscopy 06-20-2003--no polyp s--only internal hemorrhoids HTN Denies TN,DM,CVA,Lung disease,renal dise ase Hyperlipidemia Surgical History Surgery Date(Month/Year) Ankle surgery Knee surgery for tendon repair Back surgery for a cyst and pinched ne rve Left inguinal hernia Finger surgery on left 5th digit
--- OUTSIDE RECORDS SUMMARY | 2024-12-14 08:11 | XMS_ITS | Clinical Summary ---
Author Organization [employer] Address [address] [place] [address] Care Team Providers Care Sewer Repairer Name Role Phone Unavailable Primary Care Provider Unavailabl e Allergies Active Allergy Reactions Criticality Noted Date Comments Lisinopril Swelling 05/29/2022 Medications amLODIPine (Norvasc) 10 MG tablet Take 10 mg by mouth in the morning. 2 Active simvastatin (Zocor) 20 MG tablet Take 20 mg by mouth in the morning. 2 Active doxazosin (Cardura) 2 MG tablet Take 2 mg by mouth at bedtime. 2 Active Sod Fluoride-Potass ium Nitrate 1.1-5 % paste [place] teeth for 2 minutes, morning and night. Spit, do not rinse. Do not eat or drink anything for 30 minutes following brushing. 112 g 3 4 Active Social History Tobacco Use Types Packs/Day Years Used Date Smoking Tobacco: Never Smokeless Tobacco: Never Tobacco Cessation:Counseling Given: Not Answered Sex and Gender Information Value Date Recorded Sex Assigned at Male 04/15/2022 10:23 AM EDT Legal Sex Male 10:23 AM EDT Gender Identity Choose not to disclose 10:23 AM EDT Sexual Orientation Choose not to disclose 2021 10:23 AM EDT Last Filed Vital Signs Vital Sign Reading Time Taken Comments Blood Pressure 122/64 12/31/2023 8:08 AM EDT Pulse 66 12/22/2023 10:05 AM EDT Temperature - - Respiratory Rate - - Oxygen Saturation - - Inhaled Oxygen Concentration - - Weight - - Height - - Body Mass Index - - Plan of Treatment Health Maintenance Due Date Last Done Comments Depression Screening 1945 Lipid Panel 1945 SDOH Screening 1947 Alcohol/Substance Use Screening 1959 Hepatitis C Screening 1965 DTaP/Tdap/Td Vaccines (1 - Tdap) 1966 Pneumococcal Vaccine: 50+ Years (1 of 1 - PCV) 1997 COVID-19 Vaccine ( season) 2024 05/20/2023, 10/29/2022, 2022, Additional history exists Dental X-Ray: Bitewings 06/20/2024 06/19/19 24, 08/21/2022, 08/21/2022 Dental Oral Exam 06/24/2024 12/22/2023, 09/2023, 08/21/2022, Additional history exists Dental Prophylaxis 06/24/2024 12/22/2023, 0 06/19/2023, 05/29/2022 Tobacco Screening 12/21/2024 12/22/2023 Influenza Vaccine (Season Ended) 2025 03/28/2021 Dental X-Ray: Full Mouth 06/20/2026 06/19/2023, 0301/2023 Zoster Vaccines Completed 08/19/2022, 05/21/2022 RSV Patients and Patients Aged 60 years or older Completed 05/20/2023 HIB Vaccines Aged Out No longer eligi ble based on patient's age to complete this topic HPV Vaccines Aged Out No longer eligi ble based on patient's age to complete this topic Hepatitis A Vaccines Aged Out No long er eligible based on patient's age to complete this topic Hepatitis B Vaccines Aged Out No long er eligible based on patient's age to complete this topic IPV Vaccines Aged Out No longer eligi ble based on patient's age to complete this topic Meningococcal B Vaccine Aged Out No l onger eligible based on patient's age to complete this topic Meningococcal Vaccine Aged Out No [place] eligible based on patient's age to complete this topic RSV under 20 months Aged Out No longe r eligible based on patient's age to complete this topic Rotavirus Vaccines Aged Out No longer eligible based on patient's age to complete this topic Procedures Procedure Name Priority Date/Time Associated Diagnosis Comments Full PROPHYLAXIS - ADULT Routine 024 10:00 AM EDT Defective dental sabianism Dental plaque PERIODIC ORAL EVALUATION - ESTABLISHED PATIENT Routine 12/22/2023 10:00 AM EDT Defective dental sabianism Dental plaque INTRAORAL - COMPLETE SERIES OF RADIOGRAPHIC IMAGES Routine 06/19/2023 3:00 PM EST from Last 3 Months or Most Recently Relevant to Health Maintenance Insurance DENTAL - [employer]
[2024-12-14 09:46] LABS: MANUAL DIFF FLAG NO
[2024-12-14 09:50] LABS: Hematocrit 43.8 % (42.0-52.0); Hemoglobin 14.2 g/dl (14.0-18.0); Imm Gran Abs Auto 0.02 X10*3/uL (0.00-0.03); Imm Gran Pct Auto 0.2 % (0.0-0.4); Lymphocytes Absolute Auto 2.0 X10*3/uL (1.2-4.9); Mean Corpuscular HGB Conc 32.4 g/dl (31.0-36.0); Mean Corpuscular Hemoglobin 28.6 pg (27.0-33.0); Mean Corpuscular Volume 88.3 fL (80.0-98.0); NRBC Abs Auto 0.000 X10*3/uL (0.0-0.012); NRBC Pct Auto 0.0 /100WBC (0.0-0.2); Platelet Count 273 X10*3/uL (160-400); Red Blood Count 4.96 X10*6/uL (4.60-5.80); White Blood Count 8.7 X10*3/uL (4.8-10.8)
[2024-12-14 09:58] LABS: Hemoglobin A1C 135.9447 umol/L; Total Hemoglobin (HGBA1C) 3622.5754 umol/L
[2024-12-14 10:08] LABS: Alanine Aminotransferase 31 U/L (0-40); Albumin Level 4.8 g/dL (3.5-5.0); Alkaline Phosphatase 79 U/L (39-117); Anion Gap 11 (12-20); Aspartate Amino Transferase 30 U/L (5-37); Blood Urea Nitrogen 11 mg/dL (9-16); Calcium 10.1 mg/dL (8.4-10.2); Carbon Dioxide 26 mmol/L (22-29); Chloride 107 mmol/L (96-108); Cholesterol 183 mg/dL (<200); Estimated Glomerular Filt Rate > 60; HDL Cholesterol 64 mg/dL (>40); Potassium 4.0 mmol/L (3.3-5.1); Sodium 140 mmol/L (135-145); Total Protein 7.3 g/dL (6.5-8.0); Triglycerides 114 mg/dL (<150)
[2024-12-14 10:23] LABS: Prostate Specific Antigen 7.12 ng/mL (<0.05-4.0)
== END 2024-12-14 08:06 | disposition home or self-care (01) ==
LOC: HO.10HDL 08:05
PROVIDERS: Visit Provider Internal Medicine
DX: I10 Essential (primary) hypertension (principal); E78.5 Hyperlipidemia, unspecified; R97.20 Elevated prostate specific antigen [PSA]; R73.09 Other abnormal glucose; Z12.5 Encounter for screening for malignant neoplasm of prostate
CPT/HCPCS: 36415; 80053; 80061; 83036; 84153; 85025

== ENCOUNTER 2025-04-14 14:21 | Outpatient (AMB) | payer MEDICARE, OTHER, SELFPAY ==
--- NOTE | 2025-04-14 14:32 | MHC.OFFVIS ---
Intake Visit Reasons: elevated PSA Intake Note: New patient is Present for Elevated PSA Urology Med: Doxazosin Antibiotic Allergy: None Blood Thinner: None PVR: 0ml Sleeve Wheel Maker Required: No Accompanied by: Self / Same As Patient Allergies lisinopril (LISINOPRIL) Allergy (Unknown, Verified 04/14/25 14:33) ORAL SWELLING lisinopril Allergy (Unknown, Uncoded 04/14/25 14:33) oral swelling HPI Comments Details: Kendrick is a pleasant male. He is a patient of Dr. Ordonez. He is seen for the following urologic conditions - elevated PSA Previous evaluation Prior negative biopsy MRI in system ANDREA 2+ Start finasteride Repeat lab work six-month Elevated PSA - 01/07 7.1 PFSH Medical History Hemorrhoids that prolapse with straining and require manual replacement back inside anal canal Hyperlipidemia Hypertension Surgical History History of colonoscopy (~03/09/15) History of hemorrhoidectomy (~10/10/23) History of carpal tunnel release Hx of left inguinal hernia repair Hx of left knee surgery Hx of excision of mass Family History Sister Pancreatic cancer Mother No problems noted. Father No problems noted. Social History Alcohol intake: current Alcohol intake frequency: holidays/special occasions only Patient Tobacco Use Status: Never used Tobacco Review of Systems Const Denies chills and Denies fever(s) Card Reports no additional complaints and Denies syncope Resp Denies cough GI Denies abdominal pain and Denies heartburn Reports as per HPI and Denies change in libido Neuro Denies syncope Psych Denies change in libido Endo Denies change in libido Physical Exam Const General: cooperative, healthy appearing, comfortable and no acute distress Orientation/consciousness: patient oriented x3 HEENT Face and sinus: Yes normal facial exam Mouth: moist mucous membranes Neck Neck: Yes normal visual inspection, Yes full ROM and Yes trachea midline Chest Chest palpation & inspection: normal inspection of the chest Resp Effort & Inspection: normal respiratory effort, able to speak in complete sentences and no respiratory distress GI Inspection: Yes normal to inspection Rectal Exam - Male: Yes normal sphincter tone and Yes prostate normal Male General Exam: Yes normal external exam Penis: normal penis and circumcised Meatus: meatus normal Scrotum: scrotum normal Testes: Testes normal Back/Spine/Pelvis Cervical Spine: normal cervical lordosis Thoracic/Lumbar Spine: thoracic and lumbar spine normal to inspection Skin General skin exam: no rashes or lesions noted Neuro General: patient oriented x3, gait normal, tone normal and moves all extremities Extrem General: Yes normal to inspection and Yes capillary refill normal Office Procedures Post Void Residual Post Residual Void Post Void Residual (PVR): 0 [id number]-[id number] Void Residual by ultrasound Assessment & Plan Assessment & Plan (1) Elevated PSA: Code(s): R97.20 - Elevated prostate specific antigen [PSA] Category: Medical Plan Start finasteride Six-month follow-up check PSA Orders: Orders AMB Post Void Residual by ultrasound Today R97.20 - Elevated prostate specific antigen [PSA] PSA,Total (Free>4and<10) 6 Months R97.20 - Elevated prostate specific antigen [PSA] Medications: New finasteride 5 mg PO DAILY 90 tabs 1RF 90 days R97.20 - Elevated prostate specific antigen [PSA] Patient Instructions: This note is constructed using voice recognition software. While every effort has been made to ensure accuracy diagrammer errors may have been included. Imaging studies, laboratory and physical exam results were discussed and reviewed in detail. No major barriers to patient understanding were identified. An opportunity to ask questions regarding the treatment plan was provided. All questions were answered. The patient expressed understanding and agreement with the above treatment plan. The patient is aware they should contact our office by phone for worsening of their current condition or the appearance of new urologic symptoms. Compliance is encouraged with any medications and followup testing that is ordered. It is a privilege to participate in the urologic care of your patient. If you have any questions or concerns regarding treatment for the above conditions, or other urologic issues, please do not hesitate to contact me. The office telephone contact is [phone]. Sincerely, Dr Nato Bauer MD, [place] [facility] - Urology Compassionate Specialist Care for the Genitourinary System Coding Level of Care Code New Pt Level 4 (20260) Diagnoses Elevated PSA R97.20 CPT Codes Post Residual Void - PVR CPT Code: 28079-Bzeg Void Residual by ultrasound ([id number])
--- OUTSIDE RECORDS SUMMARY | 2025-04-14 17:23 | XMS_ITS | Clinical Summary ---
Author Organization [employer] Address [address] [place] [address] Care Team Providers Care Staff Reporter Name Role Phone Unavailable Primary Care Provider [...] Sod Fluoride-Potass ium Nitrate 1.1-5 % paste [place] teeth for 2 minutes, morning and night. [...] Years (1 of 1 - PCV) 1997 Dental X-Ray: Bitewings 06/20/2024 06/19/19 24, 08/21/2022, 08/21/2022 Dental Oral Exam 06/24/2024 12/22/2023, 09/2023, 08/21/2022, Additional history exists Dental Prophylaxis 06/24/2024 12/22/2023, 0 06/19/2023, 05/29/2022 Tobacco Screening 12/21/2024 12/22/2023 COVID-19 Vaccine ( season) 2025 05/20/2023, 10/29/2022, 2022, Additional history exists Influenza Vaccine (#1) 2025 03/28/2021 Dental X-Ray: Full Mouth 06/20/2026 [...] Routine 024 10:00 AM EDT Defective dental cheondoism Dental plaque PERIODIC ORAL EVALUATION - ESTABLISHED PATIENT Routine 12/22/2023 10:00 AM EDT Defective dental cheondoism Dental plaque INTRAORAL - COMPLETE SERIES OF RADIOGRAPHIC IMAGES Routine 06/19/2023 3:00 PM EST from Last 3 Months or Most Recently Relevant to Health Maintenance Insurance DENTAL - [employer]
--- OUTSIDE RECORDS SUMMARY | 2025-04-14 17:23 | XMS_ITS | Encounter Summary ---
Author Organization [employer] Address [address] [place] [address] Care Team Providers Care Cloth Shrinking Tester Name Role Phone Unavailable Primary Care Provider Unavailabl e Encounter Details Date Type Department Care Team (Latest Contact Info) Description 09/13/2021 Abstract [facility] CONVERSIONS Dental, Provider, DDS Social History Tobacco Use Types Packs/Day Years Used Date Smoking Tobacco: Never Assessed Sex and Gender Information Value Date Recorded Sex Assigned at Male 04/15/2022 10:23 AM EDT Legal Sex Male 10:23 AM EDT Gender Identity Choose not to disclose 10:23 AM EDT Sexual Orientation Choose not to disclose 2021 10:23 AM EDT documented as of this encounter Plan of Treatment Not on file documented as of this encounter Visit Diagnoses Not on filedocumented in this encounter
--- OUTSIDE RECORDS SUMMARY | 2025-04-14 17:23 | XMS_ITS | Encounter Summary ---
Author Organization [employer] Address [address] [place] [address] Care Team Providers Care Rug Dry Room Attendant Name Role Phone Unavailable Primary Care Provider Unavailabl e Reason for Visit * Reason Onset Date Comments Appointment 11/27/2022 Encounter Details Date Type Department Care Team ([facility] st Contact Info) Description 11/27/2022 Telephone [facility] ADULT DENTAL [address] [place], [place] [phone] Sebastian Schroeder DDS [address] [place], [place] [phone] Appointment Social History Tobacco Use Types Packs/Day Years Used Date Smoking Tobacco: Never Smokeless Tobacco: Never Sex and Gender Information Value Date Recorded Sex Assigned at Male 04/15/2022 10:23 AM EDT Legal Sex Male 10:23 AM EDT Gender Identity Choose not to disclose 10:23 AM EDT Sexual Orientation Choose not to disclose 2021 10:23 AM EDT COVID-19 Exposure Response Date Recorded In the last 10 days, have yo u been in contact with someone who was confirmed or suspected to have Coronavirus/COVID-19? No / Unsure 11/28/2022 12:50 PM EDT documented as of this encounter Miscellaneous Notes * Telephone Encounter - Rosa Hernandez - 11/27/2022 8:21 AM EDT Kendrick De Leon 1945 Patient stated that crown prep to tooth 8 and 9 fall out and was told to call in if they did please advise. documented in this encounter Plan of Treatment Not on file documented as of this encounter Visit Diagnoses Not on filedocumented in this encounter
--- OUTSIDE RECORDS SUMMARY | 2025-04-14 17:24 | XMS_ITS | Encounter Summary ---
Author Organization [employer] Address [address] [place] [id number] Care Team Providers Care Care Attendant Name Role Phone Unavailable Primary Care Provider Unavailabl e Encounter Details Date Type Department Care Team (Latest Contact Info) Description 11/27/2018 Abstract [facility] CONVERSIONS Dental, Provider, DDS Social History Tobacco [...]
--- OUTSIDE RECORDS SUMMARY | 2025-04-14 17:24 | XMS_ITS | Patient Health Record ---
Author Organization [facility] Address [address] [place] [address] Care Team Providers Care Public Health Worker Name Role Phone Belinda Ordonez M.D. Primary Care Provider Unavail able Martina Ingram Unavailable [phone] Allergies Allergen (clinical drug ingredient) Drug/Non Drug Allergy documented on EMR Reaction Allergy Type Onset Date Status lisinopril Lisinopril Unknown Drug Allergy Activ e Reason For Referral No Information Medications Medication SIG (Take, Route, Frequency, Duration) Notes Start Date End Date Status Doxazosin Mesylate 2 MG 1 tablet Orally Once a day Active Simvastatin 20 MG 1 tablet in the even ing Orally Once a day Active amLODIPine Besylate 10 MG 1 tablet Orall y Once a day Active Aspirin 81 MG 1 tablet Orally Once a day Not-Taking Immunizations Vaccine Route Administration Date Status Comme nts Influenza Unknown 03/22/2024 Administered Social History Tobacco Use: Social History Observation Description Date Details (start date - stop date) Never Smoker NA - NA Tobacco Control (Standard) Question Answer Notes Tobacco use: Nonsmoker AUDIT-C (Standard) Question Answer Notes Did you have a drink contain ing alcohol in the past year? Yes How often did you have a dri nk containing alcohol in the past year? 2 to 3 times a week (3 points) How many drinks did you have on a typical day when you were drinking in the past year? 3 or 4 drinks (1 point) How often did you have six o r more drinks on one occasion in the past year? 2 to 4 times a month (2 points) Points 6 Interpretation Positive Section Notes: Nonsmoker; occ alcohol Nonsmoker; occ alcohol Problems Problem Type SNOMED Code ICD Code Onset Dates Problem Status W/U Status Risk Notes Problem Already on aspirin (208393120) Long-term (current) use of aspirin (V58.66) Active confirmed Problem Colon cancer screening (259292198) Colon cancer screening (V76.51) Active confirmed Problem Colon cancer screening (698729778) Colon cancer screening (Z12.11) Active confirmed Problem Preprocedural examination (902355591292722) Preprocedural examination (Z01.818) Active confirmed Vital Signs Temperature 98.2 degrees Fahrenheit 03/22/2025 Blood pressure diastolic 01 mm Hg 03/22/2025 Height 68.5 in 03/22/2025 Blood pressure systolic 001 mm Hg 03/22/2025 Weight 218.2 lbs 03/22/2025 BMI 32.69 kg/m2 03/22/2025 Procedures Procedure Date Ordered Date Performed Result Body Sit e COLONOSCOPY 03/22/2025 N/A Encounters Encounter Location Date Provider Diagnosis [facility] [address] [place] [address] 03/22/2025 Martina Ingram Colon cancer screeni ng Z12.11 and Preprocedural examination Z01.818 Assessments Encounter Date Diagnosis (ICD Code) Assessment Notes Treatment Notes Treatment Clinical Notes Section Notes 03/22/2025 Colon cancer screening (ICD-10 - Z12.11) Overall, Martina appears quite well. Given his age, excellent clinical appearance, and his last colonoscopy being 10 years ago, I did recommend a follow-up colonoscopy for further screening purposes. We did review the rationale for this in regard to colon cancer prevention. Full consent has been obtained for this, including risks of bleeding and prevention. The procedure will be done with monitored anesthesia care. Martina was comfortable with this plan. Thank you again for allowing me to participate in Martina's care. I shall continue to keep you advised of his progress. 03/22/2025 Preprocedural examination (ICD-10 - Z01.818) Overall, Martina appears quite well. Given his age, excellent clinical appearance, and his last colonoscopy being 10 years ago, I did recommend a follow-up colonoscopy for further screening purposes. We did review the rationale for this in regard to colon cancer prevention. Full consent has been obtained for this, including risks of bleeding and prevention. The procedure will be done with monitored anesthesia care. Martina was comfortable with this plan. Thank you again for allowing me to participate in Martina's care. I shall continue to keep you advised of his progress. Plan Of Treatment Pending Test Test Name Order Date COLONOSCOPY 03/22/2025 Future Test Test Name Order Date COLONOSCOPY 12/14/2014 Next Appt Details Provider Name:Martina Ingram , 06/13/2025 11:50:00 AM, [address] [place] [address] , [place], [place], [phone], Insurance Providers Payer Name Payer Address Payer Phone Subscriber Number Group Number Insured Name Patient Relationship to Insured Coverage Start Date Coverage End Date MEDICARE OF [facility] [address] [place] [address] [phone] [id number] MARTINA HAM Self - patient is the insured [address] [place] [address] [address] [place] [address] [id number] HAM , MARTINA Self - patient is the insured 5 Medical (General) History Medical History History ICD Code Screening colonoscopy 06-20-2003- no polyp s- only internal hemorrhoids HTN Denies [place],DM,CVA,Lung disease,renal dise ase Hyperlipidemia Negative screening colonoscopy in 2014 Elevated PSA followed by Urology- has marie d MRI's and biopsies Surgical History Surgery Date(Month/Year) Right carpal tunnel Hemorrhoidectomy Finger surgery on left 5th digit Left inguinal hernia Back surgery for a cyst and pinched ne rve Knee surgery for tendon repair Ankle surgery
== END 2025-04-14 14:57 | disposition home or self-care (01) ==
LOC: HO.HUSH 14:21
PROVIDERS: PCP Internal Medicine; Visit Provider Urology
DX: R97.20 Elevated prostate specific antigen [PSA] (principal)
CPT/HCPCS: 99204

== ENCOUNTER → 2025-04-14 14:21 | Outpatient (BNVA) | payer MEDICARE, OTHER, SELFPAY | PROVIDERS: PCP Internal Medicine; Visit Provider Urology | DX: R97.20 Elevated prostate specific antigen [PSA] (principal) | CPT/HCPCS: 51798; 99202 ==

== ENCOUNTER 2025-05-26 09:55 | Outpatient (AMB) | payer MEDICARE, OTHER, SELFPAY ==
--- NOTE | 2025-05-26 10:06 | A.OFFPC_ITS ---
Vital Signs 05/26/25 10:17 Height 5 ft 9.09 in Weight 215 lb BMI 31.7 BP 132/78 Blood Pressure Location Lt brachial Position Sitting Respiration 20 Pulse 99 Pulse Source Pulse Oximeter Temp 98.6 F Temp Source Temporal Artery Scan Pulse Oximetry (%) 93 Oxygen Delivery Method Room Air Intake Visit Reasons: 6 Month F/U Bail Agent Required: No Accompanied by: Self / Same As Patient Allergies lisinopril (LISINOPRIL) Allergy (Unknown, Verified 05/26/25 10:06) ORAL SWELLING lisinopril Allergy (Unknown, Uncoded 04/14/25 14:33) oral swelling Medication List - Last Reconciled 05/26/25 by Desmond Angel MD amlodipine 10 mg PO DAILY doxazosin 2 mg PO DAILY finasteride 5 mg PO DAILY 90 days multivitamin 1 tab PO DAILY simvastatin 20 mg PO BEDTIME Tobacco use date assessed: 05/26/25 Fall risk assessment: No Falls in past year Last assessed Fall Risk: 05/26/25 Dental Screening Dental Screen Date: 05/26/25 Did you have a dental visit in the last 12 months?: Yes Did you have a dental problem in the last 6 months where you did not have access to dental care?: No Was dental information given to patient?: Patient has dentist HPI HPI Comments History of Present Illness Details History of Present Illness The patient is a 80 year old male presenting for a routine follow-up appointment. He reports having a cold since returning from a trip to [facility]. He is on amlodipine 10 mg for hypertension, simvastatin 20 mg for high cholesterol, and finasteride 5 mg and doxazosin 2 mg for his prostate. He reports urinating well. His last lab work was in December and showed good blood counts, electrolytes, and an A1c of 5.6. His cholesterol panel was also good, with a total cholesterol of 183 and LDL of 97. He sees a urologist and is scheduled for blood work with Dr. Bauer in October. Medical History: - Hypertension - Hypercholesterolemia - Benign prostatic hyperplasia Medications: - Amlodipine 10 mg for hypertension - Simvastatin 20 mg for high cholesterol - Finasteride 5 mg for prostate - Doxazosin 2 mg for prostate Diagnostic Results: - Last blood work in December showed good bl ood counts and electrolytes. - A1c: 5.6 - Total cholesterol: 183 - LDL cholesterol: 97 Social History - Travel: The patient recently returned from a trip to [facility] with his daughter, her , and their two sons. [facility] Medical History (Updated 05/26/25 @ 14:53 by Desmond Angel MD) Acute URI BPH NOS w/o ur obs/LUTS Hemorrhoids that prolapse with straining and require manual replacement back i nside anal canal Hyperlipidemia Hypertension Surgical History History of colonoscopy (~03/09/15) History of hemorrhoidectomy (~10/10/23) History of carpal tunnel release Hx of left inguinal hernia repair Hx of left knee surgery Hx of excision of mass Family History Sister Pancreatic cancer Mother No problems noted. Father No problems noted. Social History Housing: House Alcohol intake: current Alcohol intake frequency: holidays/special occasions only Patient Tobacco Use Status: Former Tobacco user Tobacco use type: Cigarette Years Smoked: 15 years e-Cigarette/Vaping Use: Never Used service: Yes Current occupational status: retired Questionnaire Thrive Questionnaire Date Thrive assessed: 05/26/25 I am a: Patient What is your living situation today?: I have a steady place to live Within the past 12 months, did the food you bought not last and you didn't have the money to get more?: Never true Within the past 12 months, did you worry whether your food would run out before you got money to buy more?: Never true Do you have trouble paying for medicines?: No Do you have trouble getting transportation to medical appointments?: No Do you have trouble paying your heating and electricity bill?: No Do you have trouble taking care of your child, family member or friend?: No Do you have trouble with day-to-day activities such as bathing, preparing meals, shopping, managing finances, etc.?: No Are you currently unemployed and looking for a job?: No Are you interested in more education?: No THRIVE Score: 0 AUDIT C Alcohol Use Questionnaire (AUDIT-C) 1. How often do you have a drink containing alcohol?: 2-3 times a week 2. How many drinks containing alcohol do you have on a typical day when you are drinking?: 1 or 2 3. How often do you have six or more drinks on one occasion?: Never Total Score: 3 Score Reviewed/Action Taken: Yes LIO-7 AMB Questionnaire LIO-7 Date LIO - 7 assessed: 05/26/25 Feeling nervous, anxious, or on edge: 0 = Not at all Not being able to stop or control worryin = Not at all Worrying too much about different things: 0 = Not at all Trouble relaxin = Not at all Being so restless that it is hard to sit still: 0 = Not at all Becoming easily annoyed or irritable: 0 = Not at all Feeling afraid as if something awful might happen: 0 = Not at all Total LIO-7 score (0-4 normal; 5-9 mild; 10-14 moderate; 15-21 severe): 0 Source: Developed by Drs. Kendrick Cobb, Bhavna Ibanez, Simon Marie and colleagues, with an educational leigh from [employer]. Review of Systems Narrative Review of Systems - General: Reports feeling well overall. - Respiratory: Reports symptoms of a cold. - Genitourinary: Reports urinating well. All systems reviewed & are unremarkable except as reviewed in HPI and above Physical exam (Primary Care) Vital Signs: Last Vital Signs Temp 98.6 F 05/26/25 10:17 Pulse 99 05/26/25 10:17 Resp 20 05/26/25 10:17 BP 132/78 05/26/25 10:17 Pulse Ox 93 05/26/25 10:17 Oxygen Delivery Method Room Air 05/26/25 10:17 BMI result Body Mass Index 31.7 Tobacco/Smoking Status: Tobacco use Status Tobacco use date assessed 05/26/25 05/26/25 10:09 Patient Tobacco Use Status Former Tobacco user 05/26/25 10:23 Tobacco use type Cigarette 05/26/25 10:23 e-Cigarette/Vaping Use Never Used 05/26/25 10:23 Thrive Assessment: Date of Thrive Assessment Date Thrive assessed 05/26/25 05/26/25 10:23 Narrative Physical Exam General: +Alert and oriented, Well nourished, No acute distress. Eye: Pupils are equal, round and reactive to light, Intact accommodation, Extraocular movements are intact, Normal conjunctiva, Vision unchanged. HENT: Normocephalic, Atraumatic, Tympanic membranes are clear, Normal hearing, Oral mucosa is moist, No pharyngeal erythema, Ear canals patent. Respiratory: Lungs CTA bilaterally, No wheeze, Respirations are non-labored. Cardiovascular: Regular rate, Regular rhythm, S1 auscultated, S2 auscultated, No murmur, Good pulses equal in all extremities, Normal peripheral perfusion, No edema. Gastrointestinal: Soft, Non-tender, Non-distended, Normal bowel sounds, No organomegaly. Musculoskeletal: Normal range of motion, Normal strength, No tenderness, No sw elling, No deformity, Normal gait. Integumentary: Warm, Dry, [place], Intact. Neurologic: Alert, Oriented, Normal sensory, Normal motor function, No focal defects, Cranial Nerves II-XII are grossly intact, Normal deep tendon reflexes. Psychiatric: Cooperative, Appropriate mood & affect, Normal judgment. Coding Level of Care Code Est Pt Level 4 (23295) Add On Problem Visit Only Diagnoses Primary hypertension I10 Hypertension type: primary hypertension Other hyperlipidemia E78.49 Hyperlipidemia type: other hyperlipidemia BPH NOS w/o ur obs/LUTS N40.0 Acute URI J06.9 Assessment & Plan Assessment & Plan (1) Hypertension: Comment: - Well-controlled on current medication. - Continue amlodipine 10 mg daily. Code(s): I10 - Essential (primary) hypertension Category: Medical Qualifiers: Hypertension type: primary hypertension Qualified Code(s): I10 - Essential (primary) hypertension (2) Hyperlipidemia: Comment: - Well-controlled on current medication with an LDL of 97. - Continue simvastatin 20 mg daily. Code(s): E78.5 - Hyperlipidemia, unspecified Category: Medical Qualifiers: Hyperlipidemia type: other hyperlipidemia Qualified Code(s): E78.49 - Other hyperlipidemia (3) BPH NOS w/o ur obs/LUTS: Comment: - Symptomatically well-controlled. - Continue finasteride 5 mg and doxazosin 2 mg daily. - Patient is followed by a urologist. Code(s): N40.0 - Benign prostatic hyperplasia without lower urinary tract symptoms Category: Medical (4) Acute URI: Comment: - Patient reports symptoms of a cold after travel. - Condition appears self-limited and resolving. - No active intervention planned. Code(s): J06.9 - Acute upper respiratory infection, unspecified Category: Medical Plan: Health Maintenance: - Discussed need for influenza and pneumonia vaccinations. - It was recommended the patient receive both vaccinations at a pharmacy. - Labs will be coordinated to be drawn at the same time as his labs for his urologist in October. - A follow-up visit is scheduled for a physical in six months. Patient was informed and verbally consented to the use of an ambient scribe for clinic note documentation during this visit. Plan I reviewed the patient's current medications, and he confirms he is taking them as prescribed. We discussed his recent lab work from December, which showed stable blood counts, electrolytes, and an A1c of 5.6. His cholesterol panel also looked good with an LDL of 97, and we agreed to continue the current dose of simvastatin. I informed him that his blood pressure today is excellent. The patient inquired about a flu shot and pneumonia shot. I advised him that he can get both immunizations at his pharmacy. To make it easier for him, we will coordinate his next blood work with the labs required by his urologist, Dr. Bauer, in October. I reassured the patient that he is very healthy and that his vitals look good. He should continue his current regimen, and I will see him back in six months for a physical. Orders: Orders Comprehensive Met. Panel 6 Months Z00.00 - Encounter for general adult medical examination without abnormal findings HIV Ab/Ag 6 Months Z00.00 - Encounter for general adult medical examination without abnormal findings Lipid Panel 6 Months Z00.00 - Encounter for general adult medical examination without abnormal findings Microalbumin, Random (w Creat) 6 Months Z00.00 - Encounter for general adult medical examination without abnormal findings Syphilis Screen 6 Months Z00.00 - Encounter for general adult medical examination without abnormal findings TSH reflex Free T4 6 Months Z00.00 - Encounter for general adult medical examination without abnormal findings Vitamin D 25-OH Total 6 Months Z00.00 - Encounter for general adult medical examination without abnormal findings Complete Blood Count Auto Diff 6 Months Z00.00 - Encounter for general adult medical examination without abnormal findings Hemoglobin A1c 6 Months Z00.00 - Encounter for general adult medical examination without abnormal findings Hepatitis A,B,C Profile 6 Months Z00.00 - Encounter for general adult medical examination without abnormal findings Patient Instructions: - Continue taking your current medications as prescribed: amlodipine 10 mg, simvastatin 20 mg, finasteride 5 mg, and doxazosin 2 mg. - You should get your flu shot and pneumonia shot at your local pharmacy. - We will schedule your next blood work to be done at the same time as the labs for your urologist, Dr. Bauer, in October. - Please continue what you are doing as you are very healthy. - Schedule a follow-up appointment for a physical in six months.
[2025-05-26 10:17] VITALS: BP 132/78; PULSE 99; RESP 20; TEMP 37; O2SAT 93; BMI 31.7
== END 2025-05-26 10:31 | disposition home or self-care (01) ==
PROVIDERS: PCP Student in an Organized Health Care Education/Training Program; Visit Provider Student in an Organized Health Care Education/Training Program
DX: I10 Essential (primary) hypertension (principal); E78.49 Other hyperlipidemia; N40.0 Benign prostatic hyperplasia without lower urinary tract symptoms; J06.9 Acute upper respiratory infection, unspecified

== ENCOUNTER → 2025-05-26 09:55 | Outpatient (BNVA) | payer MEDICARE, OTHER, SELFPAY | PROVIDERS: PCP Internal Medicine; Visit Provider Student in an Organized Health Care Education/Training Program | DX: I10 Essential (primary) hypertension (principal); E78.49 Other hyperlipidemia; N40.0 Benign prostatic hyperplasia without lower urinary tract symptoms; J06.9 Acute upper respiratory infection, unspecified; Z13.31 Encounter for screening for depression; Z13.39 Encounter for screening examination for other mental health and behavioral disorders | CPT/HCPCS: 96127; 99212 ==

== ENCOUNTER 2025-06-13 09:13 | Day surgery (SDC) | payer MEDICARE, OTHER, SELFPAY ==
--- OUTSIDE RECORDS SUMMARY | 2025-05-05 20:05 | XMS_ITS | Clinical Summary ---
Author Organization [employer] Address [address] [place] [address] Care Team Providers Care Seamless Tube Mill Operator Name Role Phone Unavailable Primary Care Provider [...] Sod Fluoride-Potass ium Nitrate 1.1-5 % paste [place] teeth for 2 minutes, morning and night. [...] Routine 024 10:00 AM EDT Defective dental yazidism Dental plaque PERIODIC ORAL EVALUATION - ESTABLISHED PATIENT Routine 12/22/2023 10:00 AM EDT Defective dental yazidism Dental plaque INTRAORAL - COMPLETE SERIES OF RADIOGRAPHIC IMAGES Routine 06/19/2023 3:00 PM EST from Last 3 Months or Most Recently Relevant to Health Maintenance Insurance DENTAL - [employer]
--- OUTSIDE RECORDS SUMMARY | 2025-05-05 20:05 | XMS_ITS | Encounter Summary ---
Author Organization [employer] Address [address] [place] [address] Care Team Providers Care Sales Development Consultant Name Role Phone Unavailable Primary Care Provider Unavailabl e Reason for Visit * Reason Onset Date Comments Appointment 11/27/2022 Encounter Details Date Type Department Care Team ([facility] st Contact Info) Description 11/27/2022 Telephone [facility] ADULT DENTAL [address] [place], [place] [phone] Sebastian Schroeder DDS [address] [place], [place] [phone] Appointment Social History Tobacco Use Types Packs/Day [...]
--- OUTSIDE RECORDS SUMMARY | 2025-05-05 20:05 | XMS_ITS | Encounter Summary ---
Author Organization [employer] Address [address] [place] [address] Care Team Providers Care Wall Scraper Name Role Phone Unavailable Primary Care Provider Unavailabl e Encounter Details Date Type Department Care Team (Latest Contact Info) Description 11/27/2018 Abstract [facility] CONVERSIONS Dental, Provider, DDS Social History Tobacco [...]
--- OUTSIDE RECORDS SUMMARY | 2025-05-05 20:05 | XMS_ITS | Encounter Summary ---
Author Organization [employer] Address [address] [place] [address] Care Team Providers Care Automatic Mounter Name Role Phone Unavailable Primary Care Provider Unavailabl e Encounter Details Date Type Department Care Team (Latest Contact Info) Description 09/13/2021 Abstract [facility] CONVERSIONS Dental, Provider, DDS Social History [...]
--- OUTSIDE RECORDS SUMMARY | 2025-05-05 20:05 | XMS_ITS | Patient Health Record ---
Author Organization [facility] Address [address] [place] [address] Care Team Providers Care Lay Out Helper Name Role Phone Belinda Ordonez M.D. Primary Care Provider Unavail able Martina Ingram Unavailable [phone] Allergies Allergen (clinical drug ingredient) Drug/Non Drug Allergy documented on EMR Reaction Allergy Type Onset Date Status lisinopril Lisinopril Unknown Drug Allergy Activ e Reason For Referral No Information Medications Medication SIG (Take, Route, Frequency, Duration) Notes Start Date End Date Status Doxazosin Mesylate 2 MG Tablet 1 tablet Orally Once a day Active Simvastatin 20 MG Tablet 1 tablet in the evening Orally Once a day Active amLODIPine Besylate 10 MG Tablet 1 tablet Orally Once a day Active Aspirin 81 MG Tablet Chewable 1 tablet Orally Once a day Not-Taking/PRN Immunizations Vaccine Route Administration Date Status Comme nts Influenza Unknown 03/22/2024 Administered Social History Tobacco Use: Social History Observation Description Date Details (start date - stop date) Never Smoker NA - NA Social History Drug/Alcohol: Social Info Question Answer Notes AUDIT-C (Standard) Did you have a drink containing alcohol in the past year? Yes How often did you have a drink containing alcohol in the past year? 2 to 3 times a week (3 points) How many drinks did you have on a typical day when you were drinking in the past year? 3 or 4 drinks (1 point) How often did you have six or more drinks on one occasion in the past year? 2 to 4 times a month (2 points) Points 6 Interpretation Positive Tobacco Use: Social Info Question Answer Notes Tobacco Control (Standard) Tobacco use: Nonsmoker Additional Details Category Social Info Options Details Miscellaneous: Marital status: Occupation: retired Section Notes: Nonsmoker; occ alcohol Nonsmoker; occ alcohol Problems Problem Type SNOMED Code ICD Code Onset Dates Problem Status W/U Status Risk Notes Problem Already on aspirin (743626538) Long-term (current) use of aspirin (V58.66) Active confirmed Problem Colon cancer screening (534759663) Colon cancer screening (V76.51) Active confirmed Problem Colon cancer screening (029073067) Colon cancer screening (Z12.11) Active confirmed Problem Preprocedural examination (736320465656641) Preprocedural examination (Z01.818) Active confirmed Vital Signs Temperature 98.2 degrees Fahrenheit 03/22/2025 Blood pressure diastolic 01 mm Hg 03/22/2025 Height 68.5 in 03/22/2025 Blood pressure systolic 001 mm Hg 03/22/2025 Weight 218.2 lbs 03/22/2025 BMI 32.69 kg/m2 03/22/2025 Procedures Procedure Date Ordered Date Performed Result Body Sit e COLONOSCOPY 03/22/2025 N/A Encounters Encounter Location Date Provider Diagnosis [facility] [address] [place] [address] 03/22/2025 Martina Ingram Colon cancer screeni ng [...] Provider Name:Martina Ingram , 06/13/2025 11:50:00 AM, [address] [place] [address], [phone], Insurance Providers Payer Name Payer Address Payer Phone Subscriber Number Group Number Insured Name Patient Relationship to Insured Coverage Start Date Coverage End Date MEDICARE OF [employer] [address] [place] [address] [id number] JITENDRA MARTINA Self - patient is the insured [address] [place] [address] [address] [place] [address] [phone] [id number] MARTINA HAM Self - patient is the insured 5 Medical (General) History Medical History History ICD Code Screening colonoscopy 06-20-2003- no polyp s- only internal hemorrhoids HTN Denies [place],DM,CVA,Lung disease,renal dise ase Hyperlipidemia Negative screening colonoscopy in 2014 Elevated PSA followed by Urology- has marie d MRI's and biopsies Surgical History Surgery Date(Month/Year) Ankle surgery Knee surgery for tendon repair Back surgery for a cyst and pinched ne rve Left inguinal hernia Finger surgery on left 5th digit Hemorrhoidectomy Right carpal tunnel
--- NOTE | 2025-06-07 13:29 | HO.ANESPROP2 ---
Documented by User: Yohana Davila NP 06/07/25 13:30 HPI - Anesthesia Eval Consult details Narrative: 80yo M for Colonoscopy PMFSH Active Problems Active Problems: All Active Problems (Updated 05/26/25 @ 14:53 by Desmond Angel MD) Acute URI (Acute) BPH NOS w/o ur obs/LUTS (Acute) Elevated PSA (Acute) Medicare annual wellness visit, subsequent (Acute) Hemorrhoids that prolapse with straining and require manual replacement back inside anal canal (Acute) Hyperlipidemia (Acute) Hypertension (Acute) Past Medical History Medical History Acute URI BPH NOS w/o ur obs/LUTS Hyperlipidemia Hypertension Family History Family History Sister Pancreatic cancer Mother No problems noted. Father No problems noted. Family history of problems with anesthesia: No Surgical History Surgical History History of ankle surgery History of colonoscopy (~03/09/15) History of hemorrhoidectomy (~10/10/23) History of carpal tunnel release Hx of left inguinal hernia repair Hx of left knee surgery Hx of excision of mass History of Problems with Anesthesia: No Social History Social History Housing: House Alcohol intake: current Alcohol intake frequency: holidays/special occasions only Patient Tobacco Use Status: Former Tobacco user Tobacco use type: Cigarette Years Smoked: 15 years e-Cigarette/Vaping Use: Never Used Use of substances other than those prescribed or required for medical reasons: No Advance Directives: No Advance Directives Information Provided: Yes service: Yes Current occupational status: retired Meds Allergies Allergy/AdvReac Type Severity Reaction Status Date / Time lisinopril (LISINOPRIL) Allergy Unknown ORAL Verified 06/13/25 09:30 SWELLING Home Medications ?Medication ?Instructions ?Recorded ?Confirmed ?Last Taken ?Type amlodipine 10 mg tablet 10 mg PO DAILY 09/01/23 06/13/25 06/13/25 History multivitamin 1 tab PO DAILY 05/26/25 06/13/25 Unknown History Exam Pertinent Lab Results Pertinent Lab Results: Laboratory Tests 12/14/24 08:10 WBC 8.7 Hgb 14.2 Hct 43.8 Plt Count 273 Sodium 140 Potassium 4.0 Chloride 107 Carbon Dioxide 26 BUN 11 Creatinine 1.08 Assessment and Plan Assessment Anesthesia Assessment: Chart Reviewed Final Anesthetic Review Family History of Problems with Anesthesia: No History of Problems with Anesthesia: No Documented by User: Jessi Hong MD 06/13/25 10:17 PMFSH Past Medical History Medical History Acute URI BPH NOS w/o ur obs/LUTS Hyperlipidemia Hypertension Family History Family History Sister Pancreatic cancer Mother No problems noted. Father No problems noted. Surgical History Surgical History History of ankle surgery History of colonoscopy (~03/09/15) History of hemorrhoidectomy (~10/10/23) History of carpal tunnel release Hx of left inguinal hernia repair Hx of left knee surgery Hx of excision of mass Social History Social History Housing: House Alcohol intake: current Alcohol intake frequency: holidays/special occasions only Patient Tobacco Use Status: Former Tobacco user Tobacco use type: Cigarette Years Smoked: 15 years e-Cigarette/Vaping Use: Never Used Use of substances other than those prescribed or required for medical reasons: No Advance Directives: No Advance Directives Information Provided: Yes service: Yes Current occupational status: retired Meds Allergies Allergy/AdvReac Type Severity Reaction Status Date / Time lisinopril (LISINOPRIL) Allergy Unknown ORAL Verified 06/13/25 09:30 SWELLING Home Medications ?Medication ?Instructions ?Recorded ?Confirmed ?Last Taken ?Type amlodipine 10 mg tablet 10 mg PO DAILY 09/01/23 06/13/25 06/13/25 History multivitamin 1 tab PO DAILY 05/26/25 06/13/25 Unknown History Exam Airway Mallampati Class: II TM Dist: >3cm Neck ROM: Limited Heart: rrr Lungs: cta Assessment and Plan Assessment Anesthesia Assessment: Anesthesia Plan Discussed Final Anesthetic Review NPO: Yes ASA Class: II Final Preanesthetic Review: No Changes in Pt Med Stat, Meds/Allgs Chart Reviewed, Consent Obtained/Reviewed and Anes Risks/Benef Reviewed Patient Risk: Intermediate Procedure Risk: Low Anesthetic Plan Anesthetic Plan: MAC: and Agree w/ Assess. and Plan Disposition: Standard PACU
[2025-06-13 09:29] VITALS: BMI 31.8
[2025-06-13 09:43] VITALS: BP 122/91; PULSE 107; RESP 18; TEMP 36.4; O2SAT 95
[2025-06-13] MEDS: Lactated Ringers 1,000 ML 100 ML IVCONT (09:52)
[2025-06-13 10:55] VITALS: BP 101/63; PULSE 89; RESP 16; TEMP 36.3; O2SAT 95
--- NOTE | 2025-06-13 11:04 | PM.OP ---
Brief Operative Note Date of Service: 06/13/25 Pre-op diagnosis: Screening Post-op diagnosis: other (Diverticulosis) Procedure: Colonoscopy to the cecum and TI Surgeon: Kendrick Ingram MD Anesthesia: MAC Was an Boring Machine Operator Horizontal used for this Procedure?: No Estimated blood loss (mL): 0 Pathology: none sent Condition: stable Disposition: PACU
[2025-06-13 11:09] VITALS: BP 136/82; PULSE 86; RESP 16; O2SAT 96
[2025-06-13 11:23] VITALS: BP 129/86; PULSE 89; RESP 16; TEMP 36.3; O2SAT 96
--- NOTE | 2025-06-13 11:31 | OP_ITS ---
DATE OF SERVICE: 06/13/2025 SURGEON: Kendrick Ingram MD INDICATIONS: The patient presents for evaluation of colorectal cancer screening. Full consent has been obtained from him for this, including risks of bleeding and perforation. PREOPERATIVE DIAGNOSIS: Colorectal cancer screening. POSTOPERATIVE DIAGNOSIS: PROCEDURE PERFORMED: Colonoscopy to cecum and terminal ileum. ESTIMATED BLOOD LOSS: COMPLICATIONS: ANESTHESIA: Medication used, monitored anesthesia care. ASSISTANTS: SPECIMENS: POSTOPERATIVE DIAGNOSES: Colorectal cancer screening, sigmoid diverticulosis, and internal hemorrhoids. DESCRIPTION OF PROCEDURE: The patient was placed in the left lateral decubitus position. The digital rectal exam revealed no abnormalities. The Olympus video pediatric colonoscope was entered into the rectum and advanced easily to the cecum. Once in the cecum, I did identify normal-appearing cecal pouch with appendiceal orifice and a normal-appearing ileocecal valve. The entire cecum and ileocecal valve appeared normal. The terminal ileum was cannulated and appeared normal. The scope was withdrawn back in the colon. The entire cecum and ileocecal valve appeared normal. The scope was slowly withdrawn assessing all mucosal surfaces carefully. Preparation was excellent. I did not visualize any sign of polyps, colitis, nor angiodysplasia. There was a mild amount of sigmoid diverticulosis. In the rectum, scope was retroflexed visualizing internal hemorrhoids, but no other pathology. The rectal mucosa appeared normal. The scope was straightened and withdrawn from the patient. He tolerated the procedure well and was returned to the recovery area in stable condition. IMPRESSION: 1. Diverticulosis. 2. Internal hemorrhoids. PLAN: Given his age and today's negative exam, I would recommend that he did not need any further screening colonoscopies. As such, he will see me again on a p.r.n. basis. MD LUIS FELIPE Campa/ANGELLA / [id number]
== END 2025-06-13 12:03 | disposition home or self-care (01) ==
PROVIDERS: PCP Internal Medicine; Visit Provider Internal Medicine
PROC: 0DJD8ZZ Inspection of Lower Intestinal Tract, Via Natural or Artificial Opening Endoscopic (ICD-10-PCS; CPT 45378; principal; 2025-06-13 10:20)
DX: Z12.11 Encounter for screening for malignant neoplasm of colon (principal); K57.30 Diverticulosis of large intestine without perforation or abscess without bleeding; K64.8 Other hemorrhoids
CPT/HCPCS: G0121; J2003; J2704